=== PATIENT | female | born 1940 | race African-American/Black ===

== ENCOUNTER 2024-08-30 12:57 | Emergency (ER) | payer MEDICAID, SELFPAY ==
[2024-08-30] VITALS (19 sets, daily range): BP systolic 119–194; BP diastolic 53–78; PULSE 56–71; RESP 9–24; TEMP 37.1; O2SAT 96–100; BMI 23.3
--- NOTE | 2024-08-30 | CRLHL7_ITS ---
For Patients: As a result of the Cures Act, medical imaging exams and procedure reports are released immediately into your electronic medical record. You may view this report before your referring provider. If you have questions, please contact your health care provider. INDICATION: Postreduction. FINDINGS: Two views of the left wrist show mildly displaced fractures of the distal radius and ulna. No other evidence of acute fracture or dislocation. No other bony or soft tissue abnormalities identified. Dictated by Vasu Flores MD @ 08/30/2024 6:14:33 PM Dictated by: Vasu Flores MD @ 08/30/2024 18:14:44 (Electronically Signed)
--- NOTE | 2024-08-30 13:19 | CRLHL7_ITS ---
For Patients: As a result of the Century Cures Act, medical imaging exams and procedure reports are released immediately into your electronic medical record. You may view this report before your referring provider. If you have questions, please contact your health care provider. INDICATION: Pain. Fall. COMPARISON: None. TECHNIQUE: Two views left forearm. IMPRESSION: Impacted dorsally angulated fracture distal metaphysis radius and ulna. Recommend designated imaging of the wrist for better characterization. No definitive intra-articular extension in the radius. Proximal radius and ulna look normal. 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 Dictated by Ruperto Verma MD @ 08/30/2024 3:39:47 PM (Electronically Signed)
--- NOTE | 2024-08-30 13:20 | CRLHL7_ITS ---
For Patients: As a result of the Century Cures Act, medical imaging exams and procedure reports are released immediately into your electronic medical record. You may view this report before your referring provider. If you have questions, please contact your health care provider. INDICATION: Fall. Hit head. Neck pain. TECHNIQUE: CT of the cervical spine without contrast. Coronal and sagittal reformats are included. COMPARISON: None. FINDINGS: Fractures and other acute findings: None. Hardware: None. Spinal alignment: Within normal limits. Significant cervical spondylosis: Scattered cervical spondylosis without CT visualized high-grade spinal canal/neural foraminal stenosis. Paraspinal soft tissues and imaged lungs: Within normal limits. IMPRESSION: 1. No acute fracture or traumatic malalignment of the cervical spine. Please note that all CT scans at this facility use dose modulation, iterative reconstruction, and/or weight-based dosing when appropriate to reduce radiation dose to as low as reasonably achievable. Dictated by Jarad Amaya MD @ 08/30/2024 3:26:11 PM (Electronically Signed)
--- NOTE | 2024-08-30 13:20 | CRLHL7_ITS ---
For Patients: As a result of the Century Cures Act, medical imaging exams and procedure reports are released immediately into your electronic medical record. You may view this report before your referring provider. If you have questions, please contact your health care provider. INDICATION: Fall. Hit head. TECHNIQUE: CT of the head without contrast. Coronal and sagittal reformats are included. COMPARISON: None. FINDINGS: No acute intracranial hemorrhage. No mass effect or midline shift. No hydrocephalus or extra-axial collections. Patchy white matter hypoattenuation, typical for chronic microvascular ischemic change. 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 Overall moderate generalized parenchymal volume loss. No acute osseous abnormalities. Mastoid air cells and paranasal sinuses are clear. Left frontal/supraorbital soft tissue hematoma. IMPRESSION: IMPRESSION: 1. No acute intracranial abnormalities. Please note that all CT scans at this facility use dose modulation, iterative reconstruction, and/or weight-based dosing when appropriate to reduce radiation dose to as low as reasonably achievable. Dictated by Jarad Amaya MD @ 08/30/2024 3:23:11 PM (Electronically Signed)
--- NOTE | 2024-08-30 13:20 | CRLHL7_ITS ---
For Patients: As a result of the 21st Century Cures Act, medical imaging exams and procedure reports are released immediately into your electronic medical record. You may view this report before your referring provider. If you have questions, please contact your health care provider. INDICATION: FALL, CHEST PAIN, TRAUMA. (Sic) COMPARISON: None available. TECHNIQUE: CT of the chest with 75 cc of Isovue 370 intravenous contrast. Please note that all CT scans at this facility use dose modulation, iterative reconstruction, and/or weight-based dosing when appropriate to reduce radiation dose to as low as reasonably achievable. FINDINGS: THORAX Visualized Lower Neck: No significant incidental findings. Thoracic Aorta: No periaortic hemorrhage, intraluminal thrombus or intimomedial flap, intramural hematoma, contour abnormality/caliber change or active extravasation. Pulmonary Arterial Vasculature: Opacification of the pulmonary arterial tree is adequate for assessment of pulmonary embolism. No intraluminal pulmonary arterial filling defect is identified to indicate a pulmonary embolism. Lungs: No lung injury. No significant incidental findings. Medial segment right middle lobe paramediastinal subsegmental atelectasis. Incidental pleural-based linear opacities in the superior segment of the right lower lobe, lingula and right lower lobe consistent with subsegmental atelectasis and/or nonspecific fibrosis, not considered to be clinically significant. Pleura: No hemothorax. No pneumothorax. No simple effusion. Mediastinum: No mediastinal hemorrhage or pneumomediastinum. Cardiomegaly. Trachea and esophagus are normal in appearance. No mediastinal lymphadenopathy. INCLUDED SKELETON AND BODY WALL Spine: No significant spondylolisthesis, widening of the intervertebral disc spaces, interfacetal joints or interspinous distances. Vertebral bodies, pedicles, laminae, articular, transverse and spinous processes are intact. Ribs: No rib fracture is identified. Visualized appendicular skeleton: No fracture is identified. Body Wall: No soft tissue injury is identified. ABDOMEN Visualized Upper Abdomen: No significant findings. Bilateral upper pole subcentimeter renal calcifications consistent with nonobstructing nephroliths. NB: Detection of acute traumatic injury on imaging is improved with a specific clinical history as to the anatomical region or regions of concern. If there is ongoing clinical concern for an undiagnosed injury after secondary clinical survey then this examination can be reviewed if additional clinical history is forthcoming. IMPRESSION: No acute traumatic injury is identified. Incidental findings as above. Please note that all CT scans at this facility use dose modulation, iterative reconstruction, and/or weight-based dosing when appropriate to reduce radiation dose to as low as reasonably achievable. Dictated by Arsen Lawrence MD @ 08/30/2024 3:30:24 PM (Electronically Signed)
--- NOTE | 2024-08-30 13:33 | ED_ITS ---
HPI - General Adult General Date Seen: 08/30/24 <Kerry Croft MD - Last Filed: 08/30/24 19:46> Chief complaint: Fall/Minor Trauma <Kerry Croft MD - Last Filed: 08/30/24 19:46> Stated complaint: Fall down stairs <Kerry Croft MD - Last Filed: 08/30/24 19:46> Time Seen by Provider: 08/30/24 12:59 <Kerry Croft MD - Last Filed: 08/30/24 19:46> History of Present Illness HPI narrative: Patient is an 83-year-old woman visiting family here from [place], she is non Mongolian-speaking and her daughter is interpreting. We do not have any prior records. Family brings her in after she fell down several steps. Her granddaughter says that they have what sounds like a split-level home, her vision is very poor and the granddaughter thinks she had intended to go up the stairs and in stead approached the stairs going down and then fell down these carpeted steps. She hit her head and has a laceration above her left eyebrow. There is no reported loss of consciousness and she denies neck pain. She also has deformity and pain in her left arm. When specifically asked she notes rib pain. Does not complain of back pain. Mentioned urinary frequency recently as an aside to the nurse. No fevers or other illness. She is not anticoagulated. <Kerry Croft MD - Last Filed: 08/30/24 19:46> Related Data Home medications: Home Medications ?Medication ?Instructions ?Recorded ?Confirmed Unknown BP med 08/30/24 Unknown Statin 08/30/24 <Kerry Croft MD - Last Filed: 08/30/24 19:46> Allergies/adverse reactions: Allergies Allergy/AdvReac Type Severity Reaction Status Date / Time No Known Drug Allergies Allergy Verified 08/30/24 13:03 <Kerry Croft MD - Last Filed: 08/30/24 19:46> Review of Systems Status of ROS: Reports: other <Kerry Croft MD - Last Filed: 08/30/24 19:46> Exam Narrative: Exam Narrative: Vital signs reviewed In general, alert, nontoxic elderly woman. Arrives in wheelchair, transfers to bed without assistance. GCS 15. Head: Normocephalic. She has a small, roughly 1 cm wound above the left eye which is deep, with some venous oozing. Eyes: Sclera clear. Cataracts bilaterally. ENT: Mucous membranes moist. She has a bruise above the left cheek bone, no bony deformity or tenderness. Neck: Supple without adenopathy. Nontender to palpation. Heart: Regular rate and rhythm without murmur. Lungs: Clear. No increased work of breathing, crackles or wheezes. No focal tenderness, no visible bruising or deformity. Back: No visible trauma. Nontender to palpation. Abdomen: Soft, nontender to palpation. Atraumatic. Extremities: Well perfused, pulses intact. Deformity and swelling noted in the left forearm. Distal CMS intact. Remainder of the extremities are nontender to palpation without deformity or swelling. Neurologic: Alert, conversant. Speech fluent, face symmetric. Moves all extremities equally. Skin: Warm, dry well perfused. Affect: Normal. <Kerry rCoft MD - Last Filed: 08/30/24 19:46> Const: Vital Signs, click to edit/add: Vital Signs - 24 hr 08/30/24 13:05 08/30/24 14:00 08/30/24 14:15 Temperature 98.7 F Pulse Rate 63 61 Pulse Rate [Pulse Oximeter] 56 L Respiratory Rate 14 Blood Pressure Blood Pressure [Ri ght Upper Arm] 194/75 H Pulse Oximetry 96 96 96 Oxygen Delivery Me thod Room Air 08/30/24 16:39 08/30/24 16:40 08/30/24 16:56 Temperature Pulse Rate 70 71 Pulse Rate [Pulse Oximeter] 63 Respiratory Rate 18 Blood Pressure 180/64 H Blood Pressure [Ri ght Upper Arm] 173/57 H Pulse Oximetry 96 97 98 Oxygen Delivery Me thod Room Air 08/30/24 16:56 08/30/24 16:57 08/30/24 17:00 Temperature Pulse Rate 68 67 67 Pulse Rate [Pulse Oximeter] Respiratory Rate 20 23 18 Blood Pressure 170/59 H 173/57 H Blood Pressure [Ri ght Upper Arm] Pulse Oximetry 99 99 99 Oxygen Delivery Me thod 08/30/24 17:02 08/30/24 17:07 08/30/24 17:13 Temperature Pulse Rate 67 67 66 Pulse Rate [Pulse Oximeter] Respiratory Rate 20 24 14 Blood Pressure 160/62 H 163/62 H 161/59 H Blood Pressure [Ri ght Upper Arm] Pulse Oximetry 99 99 100 Oxygen Delivery Me thod 08/30/24 17:15 08/30/24 17:17 08/30/24 17:23 Temperature Pulse Rate 66 65 67 Pulse Rate [Pulse Oximeter] Respiratory Rate 21 19 9 L Blood Pressure 163/66 H 132/66 Blood Pressure [Ri ght Upper Arm] Pulse Oximetry 100 100 100 Oxygen Delivery Me thod 08/30/24 17:28 08/30/24 17:30 08/30/24 17:33 Temperature Pulse Rate 67 66 65 Pulse Rate [Pulse Oximeter] Respiratory Rate 15 18 16 Blood Pressure 140/56 H 119/53 L Blood Pressure [Ri ght Upper Arm] Pulse Oximetry 99 100 98 Oxygen Delivery Me thod 08/30/24 18:34 Temperature Pulse Rate Pulse Rate [Pulse Oximeter] 66 Respiratory Rate 18 Blood Pressure Blood Pressure [Ri ght Upper Arm] 132/78 Pulse Oximetry 99 Oxygen Delivery Me thod Room Air <Kerry Croft MD - Last Filed: 08/30/24 19:46> Vital Signs, click to edit/add: Vital Signs - 24 hr 08/30/24 13:05 08/30/24 14:00 08/30/24 14:15 Temperature 98.7 F Pulse Rate 63 61 Pulse Rate [Pulse Oximeter] 56 L Respiratory Rate 14 Blood Pressure Blood Pressure [Ri ght Upper Arm] 194/75 H Pulse Oximetry 96 96 96 Oxygen Delivery Me thod Room Air 08/30/24 16:39 08/30/24 16:40 08/30/24 16:56 Temperature Pulse Rate 70 71 Pulse Rate [Pulse Oximeter] 63 Respiratory Rate 18 Blood Pressure 180/64 H Blood Pressure [Ri ght Upper Arm] 173/57 H Pulse Oximetry 96 97 98 Oxygen Delivery Me thod Room Air 08/30/24 16:56 08/30/24 16:57 08/30/24 17:00 Temperature Pulse Rate 68 67 67 Pulse Rate [Pulse Oximeter] Respiratory Rate 20 23 18 Blood Pressure 170/59 H 173/57 H Blood Pressure [Ri ght Upper Arm] Pulse Oximetry 99 99 99 Oxygen Delivery Me thod 08/30/24 17:02 08/30/24 17:07 08/30/24 17:13 Temperature Pulse Rate 67 67 66 Pulse Rate [Pulse Oximeter] Respiratory Rate 20 24 14 Blood Pressure 160/62 H 163/62 H 161/59 H Blood Pressure [Ri ght Upper Arm] Pulse Oximetry 99 99 100 Oxygen Delivery Me thod 08/30/24 17:15 08/30/24 17:17 08/30/24 17:23 Temperature Pulse Rate 66 65 67 Pulse Rate [Pulse Oximeter] Respiratory Rate 21 19 9 L Blood Pressure 163/66 H 132/66 Blood Pressure [Ri ght Upper Arm] Pulse Oximetry 100 100 100 Oxygen Delivery Me thod 08/30/24 17:28 08/30/24 17:30 08/30/24 17:33 Temperature Pulse Rate 67 66 65 Pulse Rate [Pulse Oximeter] Respiratory Rate 15 18 16 Blood Pressure 140/56 H 119/53 L Blood Pressure [Ri ght Upper Arm] Pulse Oximetry 99 100 98 Oxygen Delivery Me thod 08/30/24 18:34 Temperature Pulse Rate Pulse Rate [Pulse Oximeter] 66 Respiratory Rate 18 Blood Pressure Blood Pressure [Ri ght Upper Arm] 132/78 Pulse Oximetry 99 Oxygen Delivery Me thod Room Air <Richy Mansfield MD - Last Filed: 08/30/24 17:33> Course Course ED Course: 83-year-old woman presents after fall downstairs with multiple visible injuries including facial laceration and left arm fracture, will get a CT of the head and cervical spine as well as her chest given the rib pain. No evident respiratory complaints or findings on exam. Will give a little bit of morphine for pain control. Procedure note: The wound on her forehead was anesthetized using lidocaine with epinephrine. Irrigated by bottle house quality control technician. Explored without evidence of foreign body or injury to deeper structures. Closed using 5 0 Vicryl, 2 deep simple interrupted sutures to close the deeper space and then 4 simple interrupted sutures using 5 0 nylon. She tolerated this well, no immediate complication. Bleeding controlled. Labs show a normal white blood cell count, hemoglobin of 11, baseline unknown. Electrolytes normal, creatinine 1, blood sugar 149. I reviewed her CT scans and her x-rays. On the left forearm x-rays, there is a distal radius and distal ulna fracture which is angulated and comminuted. I do not see any evidence on the head CT of intracranial hemorrhage or fracture. Likewise in the chest, I did not see rib fracture, pneumothorax or lung contusion. I reviewed the radiology reports. The head and cervical spine are read as negative for any acute traumatic findings. Chest is read as negative for any acute traumatic findings. Wrist is read as fracture of the distal radius and ulna. The knee is read as negative for any visible fracture, but she does have a large effusion. Apparently when she was at CT she had pain with weight-bearing there, so I do think a CT is warranted to look for occult fracture. Discussed with her daughter and with the patient by her daughter translating how to manage the fracture of her left wrist. Initially, we tried a hematoma block, but she did not have adequate anesthesia with that to manipulate the fracture and reduce it. Therefore, we discussed risks and benefits of sedation including over-sedation, need for airway management, aspiration. She and her daughter did agree to proceed with that. Consent obtained. Procedure note: She is maintained on oximetry, end-tidal CO2, cardiac monitoring. She was given propofol, Dr. Mansfield perform sedation please see his note for details. She tolerated well. The left distal radius and ulnar were reduced, intra reduction x-ray shows reduction of the angulation on lateral view and adequate positioning on the AP view. She was splinted in a sugar-tong splint with Orthoglass and Dieudonne wraps. CMS remains intact. Repeat films post splinting are pending. Review of the films post splinting show that there is a little bit of increased angulation, but I think it is adequate reduction until she sees Orthopedics. She did have a CT scan of the left knee, I reviewed this, I did not see any evidence of fracture. Radiology notes that there is a hyperattenuating joint effusion consistent with hemarthrosis but no evidence of lipohemarthrosis to indirectly suggest an intra-articular fracture. This may or may not be new, in any case given that she does endorse some pain in the knee recommended use of cane or walker to help offload the knee that in the short term. At this time, she is stable for discharge home. Orthopedic follow-up is arranged for her to follow-up with for the wrist and the knee. Tylenol as needed for pain. Suture removal in 5-7 days in clinic. Return for signs of infection or more severe head injury, or any other new or worsening concerns. <Kerry Croft MD - Last Filed: 08/30/24 19:46> Vital Signs Vital signs: Initial Vital Signs Temperature 98.7 F 08/30/24 13:05 Temperature Source Temporal Artery Scan 08/30/24 13:05 Pulse Rate 56 L 08/30/24 13:05 Pulse Rhythm Regular 08/30/24 13:05 Respiratory Rate 14 08/30/24 13:05 Blood Pressure 194/75 H 08/30/24 13:05 Blood Pressure Mean 114 H 08/30/24 13:05 Blood Pressure Position Sitting 08/30/24 13:05 Pulse Oximetry 96 08/30/24 13:05 Oxygen Delivery Method Room Air 08/30/24 13:05 Vital Signs Temperature 98.7 F 08/30/24 13:05 Pulse Rate 56 L 08/30/24 13:05 Respiratory Rate 14 08/30/24 13:05 Blood Pressure 194/75 H 08/30/24 13:05 Pulse Oximetry 96 08/30/24 13:05 Oxygen Delivery Method Room Air 08/30/24 13:05 Temperature 98.7 F 08/30/24 13:05 Pulse Rate 66 08/30/24 18:34 Respiratory Rate 18 08/30/24 18:34 Blood Pressure 132/78 08/30/24 18:34 Pulse Oximetry 99 08/30/24 18:34 Oxygen Delivery Method Room Air 08/30/24 18:34 <Kerry Croft MD - Last Filed: 08/30/24 19:46> Initial Vital Signs Temperature 98.7 F 08/30/24 13:05 Temperature Source Temporal Artery Scan 08/30/24 13:05 Pulse Rate 56 L 08/30/24 13:05 Pulse Rhythm Regular 08/30/24 13:05 Respiratory Rate 14 08/30/24 13:05 Blood Pressure 194/75 H 08/30/24 13:05 Blood Pressure Mean 114 H 08/30/24 13:05 Blood Pressure Position Sitting 08/30/24 13:05 Pulse Oximetry 96 08/30/24 13:05 Oxygen Delivery Method Room Air 08/30/24 13:05 Vital Signs Temperature 98.7 F 08/30/24 13:05 Pulse Rate 56 L 08/30/24 13:05 Respiratory Rate 14 08/30/24 13:05 Blood Pressure 194/75 H 08/30/24 13:05 Pulse Oximetry 96 08/30/24 13:05 Oxygen Delivery Method Room Air 08/30/24 13:05 Temperature 98.7 F 08/30/24 13:05 Pulse Rate 66 08/30/24 18:34 Respiratory Rate 18 08/30/24 18:34 Blood Pressure 132/78 08/30/24 18:34 Pulse Oximetry 99 08/30/24 18:34 Oxygen Delivery Method Room Air 08/30/24 18:34 <Richy Mansfield MD - Last Filed: 08/30/24 17:33> Medications Administered Medications: Discontinued Medications Generic Name Dose Route Start Last Admin Trade Name Freq PRN Reason Stop Dose Admin Sodium Chloride 500 mls @ 500 mls/hr 08/30/24 13:19 08/30/24 14:54 0.9 % Sodium Chloride 500 Ml IV 08/30/24 14:18 Infused .Q1H ONE Infusion Morphine Sulfate 4 mg 08/30/24 13:19 08/30/24 13:43 Morphine 4 Mg/Ml Inj IVP 08/30/24 13:20 4 mg ONCE ONE Administration Propofol 200 mg 08/30/24 16:42 08/30/24 17:32 Propofol 10 Mg/Ml Inj IVP 08/30/24 16:43 90 mg ONCE ONE Administration <Kerry Croft MD - Last Filed: 08/30/24 19:46> Discontinued Medications Generic Name Dose Route Start Last Admin Trade Name Freq PRN Reason Stop Dose Admin Sodium Chloride 500 mls @ 500 mls/hr 08/30/24 13:19 08/30/24 14:54 0.9 % Sodium Chloride 500 Ml IV 08/30/24 14:18 Infused .Q1H ONE Infusion Morphine Sulfate 4 mg 08/30/24 13:19 08/30/24 13:43 Morphine 4 Mg/Ml Inj IVP 08/30/24 13:20 4 mg ONCE ONE Administration Propofol 200 mg 08/30/24 16:42 08/30/24 17:32 Propofol 10 Mg/Ml Inj IVP 08/30/24 16:43 90 mg ONCE ONE Administration <Richy Mansfield MD - Last Filed: 08/30/24 17:33> Medical Decision Making Lab Data Lab results reviewed: Yes I reviewed the patient's lab results <Kerry Croft MD - Last Filed: 08/30/24 19:46> Labs: Lab Results 08/30/24 Range/Units 13:21 WBC 5.38 (4.50-11.00) K/uL RBC 3.49 L (4.00-5.20) m/uL Hgb 11.0 L (12.0-16.0) gm/dL Hct 33.4 (33.0-51.0) % MCV 96 (80-100) fL MCH 32 (26-34) pg MCHC 33 (32-36) gm/dL RDW Coeff of Elvira 11.0 L (11.5-15.5) % Plt Count 152 (140-440) K/uL Neut % (Auto) 49.7 (42.0-72.0) % Lymph % (Auto) 36.6 (20-44) % [place] % (Auto) 5.4 (0.0-11.0) % Eos % (Auto) 7.4 H (0.0-7.0) % Baso % (Auto) 0.9 (0.0-3.0) % Neut # (Auto) 2.67 (1.7-7.0) K/uL Lymph # (Auto) 1.97 (0.90-2.90) K/uL [place] # (Auto) 0.30 (0.00-0.90) K/UL Eos # (Auto) 0.40 (0.00-0.50) K/uL Baso # (Auto) 0.05 (0.00-0.30) K/uL Abs Immat Gran (auto) 0.00 (0.00-0.30) K/uL Imm/Tot Granulo (auto) 0.0 % Sodium 140 (135-149) mmol/L Potassium 4.0 (3.6-5.1) mmol/L Chloride 104 (96-114) mmol/L Carbon Dioxide 28 (20-32) mmol/L Anion Gap 8 (7-15) mEq/L BUN 20 (7-30) mg/dL Creatinine 1.0 (0.5-1.5) mg/dL Estimated Creat Clear 37.68 Estimated GFR 56 ml/min Glucose 149 H (60-115) mg/dL Calcium 9.3 (8.4-10.6) mg/dL Urine Color Yellow (Yellow) Urine Appearance Cloudy A (Clear) Urine pH 7.0 (5.0-8.5) Ur Specific [place] 1.015 (1.000-1.030) Urine Protein Negative (Negative) Urine Glucose (UA) Negative (Negative) Urine Ketones Negative (Negative) Urine Blood Trace-intact A (Negative) Urine Nitrite Negative (Negative) Urine Bilirubin Negative (Negative) Urine Urobilinogen 1.0 (0.2-1.0) Ur Leukocyte Esterase 3+ A (Negative) Urine RBC 0-2 (0-2) Urine WBC 10-25 A (0-5) Urine WBC Clumps Few A (None) Ur Squamous Epith Cells Few (None-Few) Urine Bacteria Many A (None) <Kerry Croft MD - Last Filed: 08/30/24 19:46> Lab Results 08/30/24 Range/Units 13:21 WBC 5.38 (4.50-11.00) K/uL RBC 3.49 L (4.00-5.20) m/uL Hgb 11.0 L (12.0-16.0) gm/dL Hct 33.4 (33.0-51.0) % MCV 96 (80-100) fL MCH 32 (26-34) pg MCHC 33 (32-36) gm/dL RDW Coeff of Elvira 11.0 L (11.5-15.5) % Plt Count 152 (140-440) K/uL Neut % (Auto) 49.7 (42.0-72.0) % Lymph % (Auto) 36.6 (20-44) % [place] % (Auto) 5.4 (0.0-11.0) % Eos % (Auto) 7.4 H (0.0-7.0) % Baso % (Auto) 0.9 (0.0-3.0) % Neut # (Auto) 2.67 (1.7-7.0) K/uL Lymph # (Auto) 1.97 (0.90-2.90) K/uL [place] # (Auto) 0.30 (0.00-0.90) K/UL Eos # (Auto) 0.40 (0.00-0.50) K/uL Baso # (Auto) 0.05 (0.00-0.30) K/uL Abs Immat Gran (auto) 0.00 (0.00-0.30) K/uL Imm/Tot Granulo (auto) 0.0 % Sodium 140 (135-149) mmol/L Potassium 4.0 (3.6-5.1) mmol/L Chloride 104 (96-114) mmol/L Carbon Dioxide 28 (20-32) mmol/L Anion Gap 8 (7-15) mEq/L BUN 20 (7-30) mg/dL Creatinine 1.0 (0.5-1.5) mg/dL Estimated Creat Clear 37.68 Estimated GFR 56 ml/min Glucose 149 H (60-115) mg/dL Calcium 9.3 (8.4-10.6) mg/dL Urine Color Yellow (Yellow) Urine Appearance Cloudy A (Clear) Urine pH 7.0 (5.0-8.5) Ur Specific [place] 1.015 (1.000-1.030) Urine Protein Negative (Negative) Urine Glucose (UA) Negative (Negative) Urine Ketones Negative (Negative) Urine Blood Trace-intact A (Negative) Urine Nitrite Negative (Negative) Urine Bilirubin Negative (Negative) Urine Urobilinogen 1.0 (0.2-1.0) Ur Leukocyte Esterase 3+ A (Negative) Urine RBC 0-2 (0-2) Urine WBC 10-25 A (0-5) Urine WBC Clumps Few A (None) Ur Squamous Epith Cells Few (None-Few) Urine Bacteria Many A (None) <Richy Mansfield MD - Last Filed: 08/30/24 17:33> Imaging Data CT left knee: Attestation: I have reviewed the pertinent imaging results. <Kerry Croft MD - Last Filed: 08/30/24 19:46> Radiologist's impression: Patient: DELLA BUSTAMANTE Facility: [facility] Site . Site : 1940 Study: CT-Knee Left W/O-08/30/2024 6:15:52 PM Ordering Physician: Guerda Payne Preliminary Report: INDICATION: LT KNEE PAIN, EFFUSION. (Sic) COMPARISON: Same day radiographic examination. PRELIMINARY FINDINGS: 1. [id number] hyperattenuating joint effusion with a dependent hematocrit level consistent with a hemarthrosis. No evidence of lipohemarthrosis to indirectly implicate an intra-articular fracture. Differential diagnostic considerations for hemarthrosis include trauma, an underlying bleeding diathesis and anticoagulation. 2. No fracture is identified. 3. Advanced tricompartmental osteoarthrosis noted incidentally. THIS IS A PRELIMINARY REPORT. FINAL REPORT TO BE ISSUED BY THE [facility] OF THE DEPARTMENT. <Kerry Croft MD - Last Filed: 08/30/24 19:46> CT scan - head: Attestation: I have reviewed the pertinent imaging results. <Kerry Croft MD - Last Filed: 08/30/24 19:46> Radiologist's impression: Patient: Della Bustamante MR#: [id number] : 1940 Acct:[id number] Loc: ED Service Date: 08/30/[address]: Ordering Physician: Kerry Croft M.D. Date of Service: 08/30/24 Procedure(s): CT head/brain wo con Accession Number(s): [id number] cc: Kerry Croft M.D.; Provider,Not a Local~ For Patients: As a result of the Century Cures Act, medical imaging exams and procedure reports are released immediately into your electronic medical record. You may view this report before your referring provider. If you have questions, please contact your health care provider. INDICATION: Fall. Hit head. TECHNIQUE: CT of the head without contrast. Coronal and sagittal reformats are included. COMPARISON: None. FINDINGS: No acute intracranial hemorrhage. No mass effect or midline shift. No hydrocephalus or extra-axial collections. Patchy white matter hypoattenuation, typical for chronic microvascular ischemic change. 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 Overall moderate generalized parenchymal volume loss. No acute osseous abnormalities. Mastoid air cells and paranasal sinuses are clear. Left frontal/supraorbital soft tissue hematoma. IMPRESSION: IMPRESSION: 1. No acute intracranial abnormalities. Please note that all CT scans at this facility use dose modulation, iterative reconstruction, and/or weight-based dosing when appropriate to reduce radiation dose to as low as reasonably achievable. Dictated by Jarad Amaya MD @ 08/30/2024 3:23:11 PM <Kerry Croft MD - Last Filed: 08/30/24 19:46> CT- Other: Attestation: I have reviewed the pertinent imaging results. <Kerry Croft MD - Last Filed: 08/30/24 19:46> Radiologist's impression: Patient: Della Bustamante MR#: [id number] : 1940 Acct:[id number] Loc: ED Service Date: 08/30/[address]: Ordering Physician: Kerry Croft M.D. Date of Service: 08/30/24 Procedure(s): CT cervical spine wo con Accession Number(s): [id number] cc: Kerry Croft M.D.; Provider,Not a Local~ For Patients: As a result of the Cures Act, medical imaging exams and procedure reports are released immediately into your electronic medical record. You may view this report before your referring provider. If you have questions, please contact your health care provider. INDICATION: Fall. Hit head. Neck pain. TECHNIQUE: CT of the cervical spine without contrast. Coronal and sagittal reformats are included. COMPARISON: None. FINDINGS: Fractures and other acute findings: None. Hardware: None. Spinal alignment: Within normal limits. Significant cervical spondylosis: Scattered cervical spondylosis without CT visualized high-grade spinal canal/neural foraminal stenosis. Paraspinal soft tissues and imaged lungs: Within normal limits. IMPRESSION: 1. No acute fracture or traumatic malalignment of the cervical spine. Please note that all CT scans at this facility use dose modulation, iterative reconstruction, and/or weight-based dosing when appropriate to reduce radiation dose to as low as reasonably achievable. Dictated by Jarad Amaya MD @ 08/30/2024 3:26:11 PM <Kerry Croft MD - Last Filed: 08/30/24 19:46> CT scan - chest: Attestation: I have reviewed the pertinent imaging results. <Kerry Croft MD - Last Filed: 08/30/24 19:46> Radiologist's impression: Patient: Della Bustamante MR#: [id number] : 1940 Acct:[id number] Loc: ED Service Date: 08/30/[address]: Ordering Physician: Kerry Croft M.D. Date of Service: 08/30/24 Procedure(s): CT chest w con Accession Number(s): [id number] cc: Kerry Croft M.D.; Provider,Not a Local~ For Patients: As a result of the Cures Act, medical imaging exams and procedure reports are released immediately into your electronic medical record. You may view this report before your referring provider. If you have questions, please contact your health care provider. INDICATION: FALL, CHEST PAIN, TRAUMA. (Sic) COMPARISON: None available. TECHNIQUE: CT of the chest with 75 cc of Isovue 370 intravenous contrast. Please note that all CT scans at this facility use dose modulation, iterative reconstruction, and/or weight-based dosing when appropriate to reduce radiation dose to as low as reasonably achievable. FINDINGS: THORAX Visualized Lower Neck: No significant incidental findings. Thoracic Aorta: No periaortic hemorrhage, intraluminal thrombus or intimomedial flap, intramural hematoma, contour abnormality/caliber change or active extravasation. Pulmonary Arterial Vasculature: Opacification of the pulmonary arterial tree is adequate for assessment of pulmonary embolism. No intraluminal pulmonary arterial filling defect is identified to indicate a pulmonary embolism. Lungs: No lung injury. No significant incidental findings. Medial segment right middle lobe paramediastinal subsegmental atelectasis. Incidental pleural-based linear opacities in the superior segment of the right lower lobe, lingula and right lower lobe consistent with subsegmental atelectasis and/or nonspecific fibrosis, not considered to be clinically significant. Pleura: No hemothorax. No pneumothorax. No simple effusion. Mediastinum: No mediastinal hemorrhage or pneumomediastinum. Cardiomegaly. Trachea and esophagus are normal in appearance. No mediastinal lymphadenopathy. INCLUDED SKELETON AND BODY WALL Spine: No significant spondylolisthesis, widening of the intervertebral disc spaces, interfacetal joints or interspinous distances. Vertebral bodies, pedicles, laminae, articular, transverse and spinous processes are intact. Ribs: No rib fracture is identified. Visualized appendicular skeleton: No fracture is identified. Body Wall: No soft tissue injury is identified. ABDOMEN Visualized Upper Abdomen: No significant findings. Bilateral upper pole subcentimeter renal calcifications consistent with nonobstructing nephroliths. NB: Detection of acute traumatic injury on imaging is improved with a specific clinical history as to the anatomical region or regions of concern. If there is ongoing clinical concern for an undiagnosed injury after secondary clinical survey then this examination can be reviewed if additional clinical history is forthcoming. IMPRESSION: No acute traumatic injury is identified. Incidental findings as above. Please note that all CT scans at this facility use dose modulation, iterative reconstruction, and/or weight-based dosing when appropriate to reduce radiation dose to as low as reasonably achievable. Dictated by Arsen Lawrence MD @ 08/30/2024 3:30:24 PM <Kerry Croft MD - Last Filed: 08/30/24 19:46> Discharge Plan Discharge Clinical Impression: Fracture of left wrist, Forehead laceration, Hemarthrosis of knee, left, Fracture of wrist <Kerry Croft MD - Last Filed: 08/30/24 19:46> Patient Disposition: Home w/ Parent or Adult <Kerry Croft MD - Last Filed: 08/30/24 19:46> Condition: Stable <Kerry Croft MD - Last Filed: 08/30/24 19:46> Instructions: Laceration (ED), Wrist Fracture in Adults (ED), Hemarthrosis (ED) <Kerry Croft MD - Last Filed: 08/30/24 19:46> Additional Instructions: 1) wrist fracture Follow-up with orthopedics for further discussion regarding management of broken wrist. Splint until that time. Sling as needed for comfort. Tylenol can be used for pain. 2) forehead laceration Suture removal in 5-7 days at your regular clinic. Urgent care is another option if you are not able make a clinic appointment in a timely manner. Keep an ointment such as Aquaphor or Vaseline on the wound to help with wound healing and to keep stitches from getting matted into scab. Ice will help with swelling over the next few days. 3) knee injury CT scan does not show any evidence of broken bones. There is evidence of some bleeding into the knee joint, which may be related to trauma to the knee during her fall. For now, I would use a cane or a walker to help offload some weight off of that knee. This can be further discussed with orthopedics when you follow-up. For new or worsening symptoms, signs of infection, return to the ER at any time. <Kerry Croft MD - Last Filed: 08/30/24 19:46> Prescriptions: No Action Unknown BP med Unknown Statin <Kerry Croft MD - Last Filed: 08/30/24 19:46> Follow Up/Referrals: Provider,Not a Local [Primary Care Provider, Family Practice] <Kerry Croft MD - Last Filed: 08/30/24 19:46> Stand Alone Forms: [employer] Info Instructions <Kerry Croft MD - Last Filed: 08/30/24 19:46> Procedures Procedural Sedation Pre procedure diagnosis: Left wrist fracture <Richy Mansfield MD - Last Filed: 08/30/24 17:33> Verification/time out: correct patient, correct site, correct procedure and time out performed <Richy Mansfield MD - Last Filed: 08/30/24 17:33> Sedation provider same as procedural provider: No <Richy Mansfield MD - Last Filed: 08/30/24 17:33> Assistants, if any: Dr. Mansfield-sedation. Dr. Croft to the reduction <Richy Mansfield MD - Last Filed: 08/30/24 17:33> Indication: fracture/dislocation reduction <Richy Mansfield MD - Last Filed: 08/30/24 17:33> ASA Class: III <Richy Mansfield MD - Last Filed: 08/30/24 17:33> Time of Last PO Intake: 14:00 <Richy Mansfield MD - Last Filed: 08/30/24 17:33> Mallampati classification: IV. soft palate is not visible <Richy Mansfield MD - Last Filed: 08/30/24 17:33> Preparation: night monitor applied, pulse oximeter, capnometry used, supplemental O2 applied, reversal agents at bedside, suction/airway equipment at bedside and IV secured <Richy Mansfield MD - Last Filed: 08/30/24 17:33> IV Propofol dose (mg): 30 (30 mg IV boluses x3 during the procedure. Good anesthesia was achieved with each bolus but she require repeat doses due to time for procedure.) <Richy Mansfield MD - Last Filed: 08/30/24 17:33> Complications: none <Richy Mansfield MD - Last Filed: 08/30/24 17:33>
[2024-08-30] MEDS: MORPHINE 4 MG/ML INJ IVP (13:43)
[2024-08-30] MEDS: 0.9 % SODIUM CHLORIDE 500 ML 500 ML IV (13:46)
[2024-08-30 13:52] LABS: Hematocrit* 33.4 % (33.0-51.0); Hemoglobin* 11.0 gm/dL (12.0-16.0); Immature Granulocytes Abs Auto 0.00 K/uL (0.00-0.30); Immature Granulocytes Pct Auto 0.0 %; Lymphocytes Absolute Auto 1.97 K/uL (0.90-2.90); Mean Corpuscular HGB Conc 33 gm/dL (32-36); Mean Corpuscular Hemoglobin 32 pg (26-34); Mean Corpuscular Volume 96 fL (80-100); RDW Coefficient of Variation % 11.0 % (11.5-15.5); Red Blood Count* 3.49 m/uL (4.00-5.20); White Blood Count* 5.38 K/uL (4.50-11.00)
[2024-08-30 13:59] LABS: Slide Review Reflex No
[2024-08-30 14:04] LABS: Chloride* 104 mmol/L (96-114); Potassium* 4.0 mmol/L (3.6-5.1); Sodium* 140 mmol/L (135-149)
[2024-08-30 14:07] LABS: Anion Gap 8 mEq/L (7-15); Blood Urea Nitrogen* 20 mg/dL (7-30); Calcium* 9.3 mg/dL (8.4-10.6); Carbon Dioxide* 28 mmol/L (20-32); Creatinine* 1.0 mg/dL (0.5-1.5); Est. Creatinine Clearance* 37.68; Estimated Glomerular Filt Rate 56 ml/min; Glucose* 149 mg/dL (60-115)
--- OUTSIDE RECORDS SUMMARY | 2024-08-30 14:10 | XMS_ITS | Encounter Summary ---
Author Organization [place] Address [address] [place] [address]. [place] [address] Care Team Providers Care Upholstery Auto Trimmer Name Role Phone Ruperto Alonzo MD Primary Care Provider [phone] Shanel Be APRN STUNNER ANIMAL Unavailable [phone] Ruperto Alonzo MD Unavailable Loraine Gee APRN STUNNER ANIMAL Primary Care Provider + Loraine Gee APRN STUNNER ANIMAL Unavailable [phone] Michelle Duffy RN Unavailable Unavailable Caitlin Cifuentes PA-C Unavailable Shanel Be APRN STUNNER ANIMAL Unavailable [phone] Caitlin Cifuentes PA-C Unavailable Shanel Be APRN STUNNER ANIMAL Unavailable + Ruperto Alonzo MD Primary Care Provider + Ruperto Alonzo MD Unavailable Reason for Visit * Reason Comments Medication Refill Encounter Details Date Type Department Care Team (Late st Contact Info) Description 12/30/2019 Refill [facility] [address], [address] [place] [address] [place] [address] [place] [address] Medication Refill Social History Tobacco Use Types Packs/Day Years Used Date Smoking Tobacco: Never Smokeless Tobacco: Never Alcohol Use Standard Drinks/Week Comments No 0 (1 standard drink = 0.6 oz pur e alcohol) PHQ-2 Answer Date Recorded PHQ-2 Score 0 01/07/2019 Comments No Sex and Gender Information Value Date Recorded Sex Assigned at Not on file Legal Sex Female 10:30 AM CDT Gender Identity Not on file Sexual Orientation Not on file Occupation Industry Job Start Date Job End Date unemployed Not on file Not on file Not on file documented as of this encounter Miscellaneous Notes * Telephone Encounter - Marychuy Tom RN - 12/31/2019 3:59 PM CST 3 month em refill approved. Routing refill request to provider for review/approval because: Labs not current: LDL Marychuy Tom RN on 12/31/2019 at 3:58 PM R MAKER documented in this encounter Plan of Treatment Upcoming Encounters Date Type Department Care Team (Late st Contact Info) Description 09/19/2024 11:30 AM CDT Office Visit [facility] [address] [place] [address] [place] [address] [place] [phone] documented as of this encounter Visit Diagnoses Diagnosis Hyperlipidemia LDL goal <100 Other and unspecified hyperlipidemia documented in this encounter Additional Health Concerns Assessment Noted Time PHQ-9 Depression Total Score: 10 018 7:21 AM CDT documented as of this encounter Care Teams Upholstery Auto Trimmer Relationship Specialty Start Date End Date Ruperto Alonzo MD PCP - General Family Practice 12/06/18 02/11/20 Loraine Gee APRN STUNNER ANIMAL [address] [address] [phone] PCP - General Nurse Practitioner 02/12/20 03/29/23 [place] [address] [address] [address] PCP - General Family Medicine 07/07/23 Shanel Be APRN STUNNER ANIMAL [address] [place] [address] Assigned PCP 12/01/19 01/11/20 [place] [address] [address] [address] Assigned PCP 01/12/20 02/22/20 Loraine Gee APRN STUNNER ANIMAL [address] [place] [phone] Assigned PCP 02/23/20 12/17/21 Michelle Duffy, RN Personal Advocate & Liaison (PAL) Family Medicine 03/04/20 01/21/21 Caitlin Cifunetes PA-C [facility] [address] [place] [address] Assigned PCP 12/18/21 03/25/22 Shanel Be APRN STUNNER ANIMAL [address] [address] [address] Assigned PCP 03/26/22 09/09/22 Caitlin Cifuentes PA-C [facility] [address] [place] [address] Assigned PCP 09/10/22 03/22/23 Shanel Be APRN [facility] [address] [address] [address] Assigned PCP 03/23/23 07/20/23 [place] [address] [address] [address] Assigned PCP 07/21/23 documented as of this encounter
--- OUTSIDE RECORDS SUMMARY | 2024-08-30 14:10 | XMS_ITS | Encounter Summary ---
Author Organization [place] Address [facility] [place] [address] Care Team Providers Care Talent Acquisition Sourcer Name Role Phone Ruperto Alonzo MD Primary Care Provider [phone] Ruperto Alonzo MD Unavailable Reason for Visit * Reason Comments Medication Refill Encounter Details Date Type Department Care Team (Late st Contact Info) Description 07/29/2024 Refill [facility] [id number] [place] [address] [place] [address] [place] [address] Medication Refill Social History Tobacco Use Types Packs/Day Years Used Date Smoking Tobacco: Never Smokeless Tobacco: Never Alcohol Use Standard Drinks/Week Comments No 0 (1 standard drink = 0.6 oz pur e alcohol) Social Connection and Isolation Panel [NHANES] A nswer Date Recorded Frequency of Communication with Friends and Fami ly Not on file 07/14/2023 How often do you get together with friends or re latives? Once a week 07/14/2023 Attends Faith Services Not on file 07/13 Active Member of Clubs or Organizations Not on f ile 07/14/2023 Attends Club or Organization Meetings Not on ever e 07/14/2023 Marital Status Not on file 07/14/2023 PHQ-2 Answer Date Recorded PHQ-2 Score 2 07/14/2023 [facility] - Occupational Stress Questionnaire Answer Date Recorded Do you feel stress - tense, restless, nervous, or anxious, or unable to sleep at night because your mind is troubled all the time - these days? Only a little 07/14/2023 Exercise Vital Sign Answer Date Recorde d On average, how many days pe r week do you engage in moderate to strenuous exercise (like a brisk walk)? 3 days Minutes of Exercise per Session Not on file 07/14/2023 Adolescent Education Answer Date Record ed Getting School Help Needed Not on file 11/18 Food Insecurity Answer Date Recorded Within the past 12 months, d id you worry that your food would run out before you got money to buy more? No 07/14/2023 Within the past 12 months, d id the food you bought just not last and you didn t have money to get more? No 07/14/2023 Housing Stability Answer Date Recorded Do you have housing? (Housin g is defined as stable permanent housing and does not include staying outside in a car, in a tent, in an abandoned building, in an overnight chcf, or couch-surfing.) Yes 07/14/2023 Are you worried about losing your housing? No 07/14/2023 Financial Resource Strain Answer Date R ecorded Within the past 12 months, h ave you or your family members you live with been unable to get utilities (heat, electricity) when it was really needed? No 07/14/2023 Transportation Needs Answer Date Record ed Within the past 12 months, h as lack of transportation kept you from medical appointments, getting your medicines, non-medical meetings or appointments, work, or from getting things that you need? No 07/14/2023 Comments No Sex and Gender Information Value Date Recorded Sex Assigned at Not on file Legal Sex Female 10:30 AM CDT Gender Identity Not on file Sexual Orientation Not on file Occupation Industry Job Start Date Job End Date unemployed Not on file Not on file Not on file documented as of this encounter Miscellaneous Notes * Telephone Encounter - Bev Moreno RN - 07/29/2024 4:22 PM CDT Spoke to Jb Allen to get patient scheduled - scripts to be sent to [facility] instead. RN confirmed that patient is taking medications as prescribed- daughter states pt was in [place] for 8 months and was seeing provider there. Routing to PCP, Dr. Alonzo- Patient could not get in for appt until 09/19 due to daughter's work schedule/transportation. Would it be ok to send in longer bridge script for this reason? They also prefer a different pharmacy. Pharmacy and scripts pended (included lisinopril from different encounter from 07/29/24 for continuity). Bev Duncan RN [facility] * Telephone Encounter - Keysha Mae - 07/29/2024 8:36 AM CDT LVM to call back for an appointment. Two more attempts will be made. Keysha Mae Lead Alterations Manager [facility] * Telephone Encounter - Ruperto Alonzo MD - 07/29/2024 8:20 AM CDT One month fill provided, pt will need f/u appt for ongoing refill. Please call to schedule CPE. Ruperto Alonzo MD * Addendum Note - Bev Moreno RN - 07/29/2024 12:01 AM CDTAddended by: BEV MORENO on: 07/29/2024 04:28 PM Modules accepted: Orders documented in this encounter Plan of Treatment Upcoming Encounters Date Type Department Care Team (Late st Contact Info) Description 09/19/2024 11:30 AM CDT Office Visit [facility] [address] [place] [address] [place] [address] [place] [address] documented as of this encounter Visit Diagnoses Diagnosis Essential hypertension with goal blood pressure less than 140/90 Hyperlipidemia LDL goal <100 Other and unspecified hyperlipidemia documented in this encounter Additional Health Concerns Assessment Noted Time PHQ-9 Depression Total Score: 1 02/12/20 20 9:42 AM POWER LINE LINEMAN documented as of this encounter Care Teams Talent Acquisition Sourcer Relationship Specialty Start [place] [address] [address] [address] PCP - General Family Medicine 07/07/23 [place] [address] [address] [address] Assigned PCP 07/21/23 documented as of this encounter
--- OUTSIDE RECORDS SUMMARY | 2024-08-30 14:10 | XMS_ITS | Encounter Summary ---
Author Organization [facility] Address [address] [place] [address]. [place] [address] Care Team Providers Care Manager Area Name Role Phone Ruperto Alonzo MD Unavailable + Ruperto Alonzo MD Primary Care Provider + 2 Shanel Be APRN SCOUT Unavailable + Ruperto Alonzo MD Unavailable + Loraine Gee APRN SCOUT Primary Care Provider + Loraine Gee APRN SCOUT Unavailable [phone] Michelle Duffy RN Unavailable Unavailable Caitlin Cifuentes PA-C Unavailable Shanel Be APRN SCOUT Unavailable + [phone] Caitlin Cifuentes PA-C Unavailable Shanel eB APRN SCOUT Unavailable + Ruperto Alonzo MD Primary Care Provider + 2 Ruperto Alonoz MD Unavailable + Reason for Visit * Reason Comments Medication Refill Encounter Details Date Type Department Care Team (Late st Contact Info) Description 11/22/2019 Refill [facility] [address], [address] [place] [address] Shanel Be APRN SCOUT [address] [place] [address] Medication Refill Social History Tobacco Use Types [...] Telephone Encounter - Marychuy Tom RN - 11/25/2019 9:07 AM CDT Prescription approved per [facility] Refill Protocol. Marychuy Tom RN on 11/25/2019 at 9:07 AM documented in this encounter Plan of Treatment Upcoming Encounters Date Type Department Care Team (Late st Contact Info) Description 09/19/2024 11:30 AM CDT Office Visit [facility] [place] [address] [address] [phone] [place] [address] [address] [phone] documented as of this encounter Visit Diagnoses Diagnosis Essential hypertension with goal blood pressure less than 140/90 documented in this encounter Additional Health Concerns Assessment Noted Time PHQ-9 Depression Total Score: 10 018 7:21 AM CDT documented as of this encounter Care Teams Manager Area Relationship Specialty Start [place] [address] [address] [phone] PCP - General Family Practice 12/06/18 02/11/20 Loraine Gee APRN SCOUT [address] [address] [address] PCP - General Nurse Practitioner 02/12/20 03/29/23 [place] [address] [address] [place] [address] PCP - General Family Medicine 07/07/23 [place] [address] [address] [place] [address] Assigned PCP 08/12/18 11/30/19 Shanel Be APRN SCOUT [address] [place] [address] Assigned PCP 12/01/19 01/11/20 [place] [address] [address] [place] [address] Assigned PCP 01/12/20 02/22/20 Loraine Gee APRN SCOUT [address] [place] [address] [phone] Assigned PCP 02/23/20 12/17/21 Michelle Duffy RN Personal Advocate & Liaison (PAL) Family Medicine 03/04/20 01/21/21 Caitlin Cifuentes PA-C [facility] [address] [place] [address] Assigned PCP 12/18/21 03/25/22 Shanel Be APRN SCOUT [address] [address] [address] Assigned PCP 03/26/22 09/09/22 Caitlin Cifuentes PA-C [facility] [address] [place] [address] Assigned PCP 09/10/22 03/22/23 Shanel Be APRN [facility] [address] [address] [address] Assigned PCP 03/23/23 07/20/23 [place] [address] [address] [address] Assigned PCP 07/21/23 documented as of this encounter
--- OUTSIDE RECORDS SUMMARY | 2024-08-30 14:10 | XMS_ITS | Encounter Summary ---
Author Organization [place] Address [facility] [place] [address] Care Team Providers Care Strategic Planner Name Role Phone Loraine Gee APRN MANAGER CITY Primary Care Provider + Loraine Gee APRN, CNP Unavailable [phone] Michelle Duffy RN Unavailable Unavailable Caitlin Cifuentes PA-C Unavailable Shanel Be APRN, CNP Unavailable [phone] Caitlin Cifuentes PA-C Unavailable Shanel Be APRN, CNP Unavailable [phone] Ruperto Alonzo MD Primary Care Provider [phone] Ruperto Alonzo MD Unavailable Reason for Visit * Reason Comments Medication Refill Encounter Details Date Type Department Care Team (Late st Contact Info) Description 12/28/[address] [facility] [id number] [place] [phone] Shubham Schwarz PA-C [address] [place] [address] Medication Refill Social History Tobacco Use Types Packs/Day Years Used Date Smoking Tobacco: Never Smokeless Tobacco: Never Alcohol Use Standard Drinks/Week Comments No 0 (1 standard drink = 0.6 oz pur e alcohol) PHQ-2 Answer Date Recorded PHQ-2 Score 0 03/12/2020 Comments No Sex and Gender Information Value Date Recorded Sex Assigned at Not on file Legal Sex Female 10:30 AM CDT Gender Identity Not on file Sexual Orientation Not on file Occupation Industry Job Start Date Job End Date unemployed Not on file Not on file Not on file documented as of this encounter Miscellaneous Notes * Telephone Encounter - Rosy Reddy RN - 12/28/2020 1:33 PM CDT Denied below. Upcoming appt with Dr. Alonzo 02/05/21. Rosy Reddy RN December 23, 2020 Ayala Crowley ?? 4:07 PM Note LM for pt to return call Ayala Crowley/Life Educator ?? AG ?? 10:58 AM Loraine Gee APRN CNP routed this conversation to Rust2/3/4 [facility] Team (Ma/Tc) Loraine Gee APRN CNP AG ?? 10:58 AM Note Needs visit. 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) documented in this encounter Additional Health Concerns Assessment Noted Time PHQ-9 Depression Total Score: 1 02/12/20 20 9:42 AM TRACER 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 [address] [place] [address] Assigned PCP 12/18/21 03/25/22 Shanel Be APRN MANAGER [place] [address] [place] [address] Assigned PCP 03/26/22 09/09/22 Caitlin Cifuentes PA-C [facility] [address] [place] [address] Assigned PCP 09/10/22 03/22/23 Shanel Be APRN MANAGER [place] [address] [place] [address] Assigned PCP 03/23/23 07/20/23 [place] [address] [place] [address] Assigned PCP 07/21/23 documented as of this encounter
--- OUTSIDE RECORDS SUMMARY | 2024-08-30 14:10 | XMS_ITS | Encounter Summary ---
Author Organization [place] Address [address] [place] [address]. [place] [address] Care Team Providers Care Custom Applicator Name Role Phone Ruperto Alonzo MD Unavailable + Ruperto Alonzo MD Primary Care Provider + 2 Shanel Be APRN METAL PRODUCTS VIEWER Unavailable + Ruperto Alonzo MD Unavailable + Loraine Gee APRN METAL PRODUCTS VIEWER Primary Care Provider + Loraine Gee APRN METAL PRODUCTS VIEWER Unavailable [phone] Michelle Duffy RN Unavailable Unavailable Caitlin Cifuentes PA-C Unavailable Shanel Be APRN METAL PRODUCTS VIEWER Unavailable + [phone] Caitlin Cifuentes PA-C Unavailable Shanel Be APRN METAL PRODUCTS VIEWER Unavailable + Ruperto Alonzo MD Primary Care Provider + 2 Ruperto Alonzo MD Unavailable + Reason for Visit * Reason Comments Medication Refill Encounter Details Date Type Department Care Team (Late st Contact Info) Description 04/27/2019 Refill [facility] [address], [address] [place] [address] [place] [address] [address] [place], [place] [phone] Medication Refill Social History Tobacco Use Types [...] encounter Miscellaneous Notes * Telephone Encounter - Nica Redd RN - 04/30/2019 7:56 AM CST Images from the original note were not included. Routing refill request to provider for review/approval because: Drug not on the [facility] refill protocol - Timolol Maleate eye drops Labs not current: Biguanide Agents Failed 11:01 AM X Patient has documented LDL within the past 12 mos. X Patient has documented A1c within the specified period of time. LDL Cholesterol Calculated Date Value Ref Range Status 08/23/2017 62 <100 mg/dL Final Comment: Desirable: <100 mg/dl Lab Results Component Value Date A1C 4.7 08/07/2018 A1C 5.1 11/29/2017 A1C 5.0 08/23/2017 A1C 5.1 09/01/2016 A1C 4.9 10/08/2015 Nica Redd RN MING [employer]OL MAINTENANCE documented in this encounter Plan of Treatment Upcoming Encounters Date Type Department Care Team (Late st Contact Info) Description 09/19/2024 11:30 AM CDT Office Visit [facility] [address] [facility] [place] [address] [place] [address] [facility] [address] documented as of this encounter Visit Diagnoses Diagnosis Primary open angle glaucoma of both eyes, unspecified glaucoma stage Type 2 diabetes mellitus with diabetic polyneuropathy, 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) documented in this encounter Additional Health Concerns Assessment Noted Time PHQ-9 Depression Total Score: 10 018 7:21 AM CDT documented as of this encounter Care Teams Custom Applicator Relationship Specialty Start [place] [address] [address] [address] PCP - General Family Practice 12/06/18 02/11/20 Loraine Gee APRN METAL PRODUCTS VIEWER [address] [place] [address] PCP - General Nurse Practitioner 02/12/20 03/29/23 [place] [address] [address] [address] PCP - General Family Medicine 07/07/23 [place] [address] [address] [address] Assigned PCP 08/12/18 11/30/19 Shanel Be APRN METAL PRODUCTS VIEWER [address] [address] [address] Assigned PCP 12/01/19 01/11/20 [place] [address] [address] [address] Assigned PCP 01/12/20 02/22/20 Loraine Gee APRN METAL PRODUCTS VIEWER [address] [place] [phone] Assigned PCP 02/23/20 12/17/21 Michelle Duffy, RN Personal Advocate & Liaison (PAL) Family Medicine 03/04/20 01/21/21 Caitlin Cifuentes PA-C [place] [id number] [place] [address] Assigned PCP 12/18/21 03/25/22 Shanel Be APRN METAL PRODUCTS VIEWER [address] [address] [address] Assigned PCP 03/26/22 09/09/22 Caitlin Cifuentes PA-C [facility] [address] [place] [address] Assigned PCP 09/10/22 03/22/23 Shanel Be APRN METAL PRODUCTS VIEWER [address] [address] [address] Assigned PCP 03/23/23 07/20/23 [place] [address] [address] [address] Assigned PCP 07/21/23 documented as of this encounter
--- OUTSIDE RECORDS SUMMARY | 2024-08-30 14:10 | XMS_ITS | Encounter Summary ---
Author Organization [place] Address [facility] [place] [address] Care Team Providers Care Digital Court Reporter Name Role Phone Ruperto Alonzo MD Primary Care Provider [phone] Ruperto Alonzo MD Unavailable Reason for Visit * Reason Comments Medication Refill Encounter Details Date Type Department Care Team (Late st Contact Info) Description 07/29/2024 Refill [facility] [id number] [place] [phone] Shubham Schwarz PA-C [id number] [place] [address] [phone] Medication Refill Social History Tobacco Use Types [...] re latives? Once a week 07/14/2023 Attends [employer] Services Not on file 07/13 Active Member of Clubs or Organizations Not on f ile 07/14/2023 Attends Club or Organization Meetings Not on ever e 07/14/2023 Marital Status Not on file 07/14/2023 PHQ-2 Answer Date Recorded PHQ-2 Score 2 07/14/2023 [facility] [place] of Occupat ional Health - Occupational Stress Questionnaire Answer Date Recorded [...] in an abandoned building, in an overnight retirement, or couch-surfing.) Yes 07/14/2023 Are you worried [...] encounter Miscellaneous Notes * Telephone Encounter - Angi Arellano RN - 07/29/2024 4:07 PM CDT Spoke to pt's daughter and scheduled for visit 09/19- See other refill encounter from 07/29/24. Routed all refills to PCP for continuity purposes. Angi Duncan RN [facility] * Telephone Encounter - Whitney Morley RN - 07/29/2024 7:54 AM CDT Clinic RN: Please investigate patient's chart or contact patient if the information cannot be foundbecause patient should have run out of this medication on 12/22/2023. Confirm patient is taking this medication as prescribed. Document findings and route refill encounter to provider for approval ordenial. Whitney Morley RN, BSN [facility] [place] documented in this encounter Plan of Treatment Upcoming Encounters Date Type Department Care Team (Late st Contact Info) Description 09/19/2024 11:30 AM CDT [facility] [address] [phone] [place] [address] [place] [address] documented as of this encounter Visit Diagnoses Diagnosis Essential hypertension with goal blood pressure less than 140/90 documented in this encounter Additional Health Concerns Assessment Noted Time PHQ-9 Depression Total Score: 1 02/12/20 20 9:42 AM GEOMAGNETIST documented as of this encounter Care Teams Digital Court Reporter Relationship Specialty Start [place] [address] [place] [address] PCP - General Family Medicine 07/07/23 [place] [address] [place] [address] Assigned PCP 07/21/23 documented as of this encounter
--- OUTSIDE RECORDS SUMMARY | 2024-08-30 14:10 | XMS_ITS | Encounter Summary ---
Author Organization [place] Address [address] [place] [address]. [place] [address] Care Team Providers Care Valve Tester Name Role Phone Loraine Gee APRN, CNP Primary Care Provider + Loraine Gee APRN, CNP Unavailable [phone] Michelle Duffy RN Unavailable Unavailable Caitlin Cifuentes PA-C Unavailable Shanel Be APRN, CNP Unavailable Caitlin Cifuentes PA-C Unavailable Shanel Be APRN, CNP Unavailable [phone] Ruperto Alonzo MD Primary Care Provider [phone] Ruperto Alonzo MD Unavailable Reason for Visit * Reason Comments Medication Refill Encounter Details Date Type Department Care Team (Late st Contact Info) Description 07/06/2020 Refill [facility] [address] [facility], [address] [place] [address] Shanel Be APRN REHAB OFFICE COORDINATOR [address] [place] [address] Medication Refill Social History Tobacco [...] file Not on file Not on file COVID-19 Exposure Response Date Recorded In the last month, have you been in contact with someone who was confirmed or suspected to have Coronavirus / COVID-19? No / Unsure 06/18/2020 9:46 AM CDT documented as of this encounter Miscellaneous Notes * Telephone Encounter - Loraine Gee APRN CNP - 07/09/2020 3:00 PM CDT Please help with nurse only blood pressure recheck Loraine Gee APRN CNP on 07/09/2020 at 3:00 PM * Telephone Encounter - Alia Thakkar RN - 07/08/2020 1:38 PM CDT Routing refill request to provider for review/approval because: BP Alia Chung RN documented in this encounter Plan of Treatment Upcoming Encounters Date Type Department Care Team (Late st Contact Info) Description 09/19/2024 11:30 AM CDT Office Visit [facility] [address] [place] [address] [place] [address] [place] [address] documented as of this encounter Visit Diagnoses Diagnosis Essential hypertension with goal blood pressure less than 140/90 documented in this encounter Additional Health Concerns Assessment Noted Time PHQ-9 Depression Total Score: 1 02/12/20 20 9: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 documented as of this encounter Care Teams Valve Tester Relationship Specialty Start Date End Date Loraine Gee APRN CNP PCP - General Nurse Practitioner 02/12/20 03/29/23 [place] [address] [address] [address] [address] PCP - General Family Medicine 07/07/23 Loraine Gee APRN REHAB OFFICE COORDINATOR [address] [place] [id number] Assigned PCP 02/23/20 12/17/21 Michelle Duffy, SEBASTIAN Personal Advocate & Liaison (PAL) Family Medicine 03/04/20 01/21/21 Caitlin Cifuentes PA-C [facility] [address] [place] [address] Assigned PCP 12/18/21 03/25/22 Shanel Be APRN REHAB OFFICE COORDINATOR [address] [place] [address] Assigned PCP 03/26/22 09/09/22 Caitlin Cifuentes PA-C [facility] [address] [address] [place] [address] Assigned PCP 09/10/22 03/22/23 Shanel Be APRN REHAB OFFICE COORDINATOR [address] [place] [address] Assigned PCP 03/23/23 07/20/23 [place] [address] [place] [address] Assigned PCP 07/21/23 documented as of this encounter
--- OUTSIDE RECORDS SUMMARY | 2024-08-30 14:10 | XMS_ITS | Encounter Summary ---
Author Organization [place] Address [address] [place] [address]. [place] [address] Care Team Providers Care Hob Mill Operator Name Role Phone Ruperto Alonzo MD Unavailable + Ruperto Alonzo MD Primary Care Provider + 2 Shanel Be APRN CORRUGATOR HELPER Unavailable + Ruperto Alonzo MD Unavailable + Loraine Gee APRN CORRUGATOR HELPER Primary Care Provider + Loraine Gee APRN CORRUGATOR HELPER Unavailable [phone] Michelle Duffy RN Unavailable Unavailable Caitlin Cifuentes PA-C Unavailable Shanel Be APRN CORRUGATOR HELPER Unavailable + [phone] Caitlin Cifuentes PA-C Unavailable Shanel Be APRN CORRUGATOR HELPER Unavailable + Ruperto Alonzo MD Primary Care Provider + 2 Ruperto Alonzo MD Unavailable + Reason for Visit * Reason Comments Medication Refill Encounter Details Date Type Department Care Team (Late st Contact Info) Description 09/20/2019 Refill [facility] [address] [address] [place], [address] [place] [address] [place] [address] [place] [address] Medication Refill Social History Tobacco Use Types [...] encounter Miscellaneous Notes * Telephone Encounter - Lucia Hammond RN - 09/20/2019 1:52 PM CDT [place] [facility]ill Protocol. Lucia Hammond RN [facility] -- Triage Nurse documented in this encounter Plan of Treatment Upcoming Encounters Date Type Department Care Team (Late st Contact Info) Description 09/19/2024 11:30 AM CDT Office Visit [facility] [address] [address] [phone] [place] [address] [place] [address] documented as of this encounter Visit Diagnoses Diagnosis Osteoporosis prophylaxis documented in this encounter Additional Health Concerns Assessment Noted Time PHQ-9 Depression Total Score: 10 018 7:21 AM CDT documented as of this encounter Care Teams Hob Mill Operator Relationship Specialty Start [place] [address] [place] [id number] PCP - General Family Practice 12/06/18 02/11/20 Loraine Gee APRN CORRUGATOR HELPER [address] [place] [address] PCP - General Nurse Practitioner 02/12/20 03/29/23 [place] [address] [place] [address] PCP - General Family Medicine 07/07/23 [place] [address] [place] [address] Assigned PCP 08/12/18 11/30/19 Shanel Be APRN CORRUGATOR HELPER [address] [place] [address] Assigned PCP 12/01/19 01/11/20 [place] [address] [place] [address] Assigned PCP 01/12/20 02/22/20 Loraine Gee APRN CORRUGATOR HELPER [address] [phone] Assigned PCP 02/23/20 12/17/21 Michelle Duffy RN Personal Advocate & Liaison (PAL) Family Medicine 03/04/20 01/21/21 Caitlin Cifuentes PA-C [facility] [address] [place] [address] Assigned PCP 12/18/21 03/25/22 Shanel Be APRN CORRUGATOR HELPER [address] [place] [address] Assigned PCP 03/26/22 09/09/22 Caitlin Cifuentes PA-C [facility] [address] [address] [place] [address] Assigned PCP 09/10/22 03/22/23 Shanel Be APRN [facility] [address] [place] [address] Assigned PCP 03/23/23 07/20/23 [place] [address] [place] [address] Assigned PCP 07/21/23 documented as of this encounter
--- OUTSIDE RECORDS SUMMARY | 2024-08-30 14:10 | XMS_ITS | Encounter Summary ---
Author Organization [place] Address [address] [place] [address] Care Team Providers Care Cooker Operator Name Role Phone Ruperto Alonzo MD Primary Care Provider + Nu Reyes MD Primary Care Prov ider Nu Reyes MD Unavailable + Nu Reyes MD Unavailable + Ruperto Alonzo MD Unavailable + Ruperto Alonzo MD Primary Care Provider + Shanel Be APRN FENCE POST DRIVER Unavailable + Ruperto Alonzo MD Unavailable + Loraine Gee APRN FENCE POST DRIVER Primary Care Provider + Loraine Gee APRN FENCE POST DRIVER Unavailable + Michelle Duffy RN Unavailable Unavailable Caitlin Cifuentes PA-C Unavailable + Shanel Be APRN FENCE POST DRIVER Unavailable + Caitlin Cifuentes PA-C Unavailable + Shanel Be APRN FENCE POST DRIVER Unavailable + Ruperto Alonzo MD Primary Care Provider [phone] Ruperto Alonzo MD Unavailable Reason for Visit * Reason Comments Medication Refill lisinopril and aspir in 81 Encounter Details Date Type Department Care Team (Late st Contact Info) Description 08/28/[address], [address] [place] [address] [place] [address] [place] [address] Medication Refill (lisinopril and aspirin 81) Social History Tobacco Use Types Packs/Day Years Used Date Smoking Tobacco: Never Smokeless Tobacco: Never Alcohol Use Standard Drinks/Week Comments No 0 (1 standard drink = 0.6 oz pur e alcohol) Comments No Sex and Gender Information Value [...] Telephone Encounter - Nica Redd RN - 08/31/2016 3:02 PM CDT Prescription approved per [facility] [place] Refill Protocol. Nica Redd RN * Telephone Encounter - Radha Valenzuela - 08/31/2016 1:17 PM CDT Caregiver for pt called indicating pt is out of meds - request rx be sent bro[place] to pharmacy. Leobardo * Telephone Encounter - Jeane Galindo - 08/29/2016 9:50 AM CDT lisinopril (PRINIVIL/ZESTRIL) 10 MG tablet Last Written Prescription Date: 10/08/15 Last Fill Quantity: 90, # refills: 1 Last Office Visit with [facility] or [facility] prescribing provider: 08/27/2016 Potassium Date Value Ref Range Status 10/08/2015 4.2 3.4 - 5.3 mmol/L Final Creatinine Date Value Ref Range Status 10/08/2015 0.73 0.52 - 1.04 mg/dL Final BP Readings from Last 3 Encounters: 08/27/16 132/68 10/08/15 150/75 06/05/15 138/68 aspirin 81 MG tablet Last Written Prescription Date: 10/08/15 Last Fill Quantity: 300, # refills: 12 Last Office Visit with [facility], P or [facility] prescribing provider: 08/27/[address] August 29, 2016 9:51 AM documented in this encounter Plan of Treatment Upcoming Encounters Date Type Department Care Team (Late st Contact Info) Description 09/19/2024 11:30 AM CDT Office Visit [facility] [address] [place] [address] [place] [address] [place] [address] documented as of this encounter Visit Diagnoses Diagnosis Essential hypertension with goal blood pressure less than 140/90 documented in this encounter Care Teams Cooker Operator Relationship Specialty Start Date End Date Ruperto Alonzo MD PCP - General Family Practice 04/20/15 10/19/16 Nu Reyes MD PCP - General Family Practice 10/20/16 12/05/18 Nu Reyes MD [place] [address] [employer] [address] [place] [address] PCP - Assigned PCP 06/05/16 05/01/18 Ruperto Alonzo MD PCP - General Family Practice 12/06/18 02/11/20 Loraine Gee APRN FENCE POST DRIVER [address] [place] [address] PCP - General Nurse Practitioner 02/12/20 03/29/23 [place] [address] [place] [address] PCP - General Family Medicine 07/07/23 Nu Reyes MD [place] [address] [employer] [address] [place], [place] [address] Assigned PCP 06/05/16 08/11/18 [place] [address] [place] [address] Assigned PCP 08/12/18 11/30/19 Shanel Be APRN FENCE POST DRIVER [address] [place] [address] Assigned PCP 12/01/19 01/11/20 [place] [address] [place] [address] Assigned PCP 01/12/20 02/22/20 Loraine Gee APRN FENCE POST DRIVER [address] [place] [place] [phone] Assigned PCP 02/23/20 12/17/21 Michelle Duffy, RN Personal Advocate & Liaison (PAL) Family Medicine 03/04/20 01/21/21 Caitlin Cifuentes PA-C [facility] [address] [place] [address] Assigned PCP 12/18/21 03/25/22 Shanel Be APRN FENCE POST DRIVER [address] [place] [address] Assigned PCP 03/26/22 09/09/22 Caitlin Cifuentes PA-C [facility] [address] [place] [address] Assigned PCP 09/10/22 03/22/23 Shanel Be APRN FENCE POST DRIVER [address] [place] [address] Assigned PCP 03/23/23 07/20/23 [place] [address] [place] [address] Assigned PCP 07/21/23 documented as of this encounter
--- OUTSIDE RECORDS SUMMARY | 2024-08-30 14:10 | XMS_ITS | Encounter Summary ---
Author Organization [place] Address [facility] [place] [address] Care Team Providers Care Jump Iron Machine Presser Name Role Phone Lroaine Gee APRN MODEL SET ARTIST Primary Care Provider + Loraine Gee APRN, CNP Unavailable Michelle Duffy RN Unavailable Unavailable Caitlin Cifuentes PA-C Unavailable Shanel Be APRN, CNP Unavailable [phone] Caitlin Cifuentes PA-C Unavailable Shanel Be APRN, CNP Unavailable [phone] Ruperto Alonzo MD Primary Care Provider [phone] Ruperto Alonzo MD Unavailable Reason for Visit * Reason Comments Medication Refill Encounter Details Date Type Department Care Team (Late st Contact Info) Description 12/22/2020 Refill [facility] [id number] [place] [phone] Shubham Schwarz PA-C [address] [place] [address] Medication Refill Social History Tobacco Use [...] encounter Miscellaneous Notes * Telephone Encounter - Ayala Crowley - 12/23/2020 4:07 PM CDT LM for pt to return call Ayala Crowley/Carpet Finishing Supervisor * Telephone Encounter - Loraine Gee APRN CNP - 12/23/2020 10:58 AM CDT Needs visit. Thank you Loraine Gee APRN CNP on 12/23/2020 at 10:58 AM * Telephone Encounter - Rosy Reddy RN - 12/23/2020 8:07 AM CDT Routing refill request to provider for review/approval because: Drug not on the [facility] refill protocol Rosy Reddy RN documented in this encounter Plan of Treatment Upcoming Encounters Date Type Department Care Team (Late st Contact Info) Description 09/19/2024 11:30 AM CDT Office Visit [facility] [address] [place] [address] [place] [address] [place] [address] documented as of this encounter Visit Diagnoses Diagnosis Diabetic polyneuropathy associated with type 2 diabetes mellitus (H) documented in this encounter Additional Health Concerns Assessment Noted Time PHQ-9 Depression Total Score: 1 02/11/ 20 9:42 AM HUSKER OPERATOR documented as of this encounter Care Teams Jump Iron Machine Presser Relationship Specialty Start Date End Date Loraine Gee APRN MODEL SET ARTIST PCP - General Nurse Practitioner 02/12/20 03/29/23 [place] [address] [place] [address] PCP - General Family Medicine 07/07/23 Loraine Gee APRN MODEL SET ARTIST [address] [place] [address] Assigned PCP 02/23/20 12/17/21 Michelle Duffy RN Personal Advocate & Liaison (PAL) Family Medicine 03/04/20 01/21/21 Caitlin Cifuentes PA-C [facility] [address] [place] [address] Assigned PCP 12/18/21 03/25/22 Shanel Be APRN MODEL SET ARTIST [address] [place] [address] Assigned PCP 03/26/22 09/09/22 Caitlin Cifuentes PA-C [facility] [address] [place] [address] Assigned PCP 09/10/22 03/22/23 Shanel Be APRN MODEL SET ARTIST [address] [place] [address] Assigned PCP 03/23/23 07/20/23 [place] [address] [place] [address] Assigned PCP 07/21/23 documented as of this encounter
--- OUTSIDE RECORDS SUMMARY | 2024-08-30 14:10 | XMS_ITS | Encounter Summary ---
Author Organization [place] Address [address] [place] [address]. [place] [address] Care Team Providers Care Die Cutter Operator Name Role Phone Ruperto Alonzo MD Unavailable + Ruperto Alonzo MD Primary Care Provider + 2 Shanel Be APRN SOLID WASTE COLLECTION WORKER Unavailable + Ruperto Alonzo MD Unavailable + Loraine Gee APRN SOLID WASTE COLLECTION WORKER Primary Care Provider + Loraine Gee APRN SOLID WASTE COLLECTION WORKER Unavailable [phone] Michelle Duffy RN Unavailable Unavailable Caitlin Cifuentes PA-C Unavailable Shanel Be APRN SOLID WASTE COLLECTION WORKER Unavailable + [phone] Caitlin Cifuentes PA-C Unavailable Shanel Be APRN SOLID WASTE COLLECTION WORKER Unavailable + Ruperto Alonzo MD Primary Care Provider + 2 Ruperto Alonzo MD Unavailable + Reason for Visit * Reason Comments Medication Refill Encounter Details Date Type Department Care Team (Late st Contact Info) Description 10/24/2019 Refill [facility] [address] [facility], [address] [place] [address] Shanel Be APRN SOLID WASTE COLLECTION WORKER [address] [place] [address] Medication Refill Social History Tobacco Use Types [...] Telephone Encounter - Lucia Hammond RN - 10/25/2019 12:05 PM CDT Prescription approved per [facility] [place] Refill Protocol. Lucia Hammond RN [facility] -- Triage Nurse documented in this encounter Plan of Treatment Upcoming Encounters Date Type Department Care Team (Late st Contact Info) Description 09/19/2024 11:30 AM CDT Office Visit [facility] [address] [address] [address] [address] [place] [address] [place] [address] documented as of this encounter Visit Diagnoses Diagnosis Essential hypertension with goal blood pressure less than 140/90 documented in this encounter Additional Health Concerns Assessment Noted Time PHQ-9 Depression Total Score: 10 018 7:21 AM CDT documented as of this encounter Care Teams Die Cutter Operator Relationship Specialty Start [place] [address] [place] [address] PCP - General Family Practice 12/06/18 02/11/20 Loraine Gee APRN SOLID WASTE COLLECTION WORKER [address] [place] [address] PCP - General Nurse Practitioner 02/12/20 03/29/23 [place] [address] [address] [place] [address] PCP - General Family Medicine 07/07/23 [place] [address] [address] [place] [address] Assigned PCP 08/12/18 11/30/19 Shanel Be APRN SOLID WASTE COLLECTION WORKER [address] [address] [place] [address] Assigned PCP 12/01/19 01/11/20 [place] [address] [address] [place] [address] Assigned PCP 01/12/20 02/22/20 Loraine Gee APRN SOLID WASTE COLLECTION WORKER [address] [place] [address] Assigned PCP 02/23/20 12/17/21 Michelle Duffy, RN Personal Advocate & Liaison (PAL) Family Medicine 03/04/20 01/21/21 Caitlin Cifuentes PA-C [facility] [address] [place] [address] Assigned PCP 12/18/21 03/25/22 Shanel Be APRN SOLID WASTE COLLECTION WORKER [address] [place] [address] Assigned PCP 03/26/22 09/09/22 Caitlin Cifuentes PA-C [facility] [address] [place] [address] Assigned PCP 09/10/22 03/22/23 Shanel Be APRN [facility] [address] [place] [address] Assigned PCP 03/23/23 07/20/23 [place] [address] [place] [address] Assigned PCP 07/21/23 documented as of this encounter
--- OUTSIDE RECORDS SUMMARY | 2024-08-30 14:10 | XMS_ITS | Encounter Summary ---
Author Organization [facility] Address [address] [place] [address]. [place] [address] Care Team Providers Care Lead Software Engineer Name Role Phone Ruperto Alonzo MD Primary Care Provider [phone] Ruperto Alonzo MD Unavailable Loraine Gee APRN PRODUCT TESTER Primary Care Provider + Loraine Gee APRN PRODUCT TESTER Unavailable [phone] Michelle Duffy RN Unavailable Unavailable Caitlin Cifuentes PA-C Unavailable Shanel Be APRN PRODUCT TESTER Unavailable [phone] Caitlin Cifuentes-Kenyatta Unavailable Shanel Be APRN, CNP Unavailable [phone] Ruperto Alonzo MD Primary Care Provider + Ruperto Alonzo MD Unavailable Reason for Visit * Reason Comments Medication Refill Encounter Details Date Type Department Care Team (Late st Contact Info) Description 01/29/[address], [address] [place] [address] Shanel Be APRN PRODUCT TESTER [address] [place] [address] Medication Refill Social History Tobacco [...] have Coronavirus / COVID-19? No / Unsure 01/29/2020 9:51 AM ECHOCARDIOGRAPH TECHNICIAN documented as of this encounter Miscellaneous Notes * Telephone Encounter - Ale Cummings RN - 01/29/2020 11:26 AM ECHOCARDIOGRAPH TECHNICIAN Medication is being filled for 1 time refill only due to: Patient needs to be seen because it has been more than one year since last visit. Next 5 appointments (look out 90 days) Feb 12, 2020 9:00 AM (Arrive by 8:40 AM) Office Visit with Loraine Gee APRN [facility] ([facility]) [address] [place] [phone] CARDIOGRAPH TECHNICIAN * Telephone Encounter - Nova García - 01/29/2020 9:58 AM CST General Call: Who is calling: Patient's daughter Tiffany Reason for Call: Checking on status of refill request, pt is out of medication as of today 01/29/20 What are your questions or concerns: none Date of last appointment with provider: 01/07/2019 with Shanel Be, made appt for pt with Loraine Gee on 02/12/20 Okay to leave a detailed message:No at Home number on file [phone] (home) Nova García-Patient Rep CARDIOGRAPH TECHNICIAN documented in this encounter Plan of Treatment Upcoming Encounters Date Type Department Care Team (Late st Contact Info) Description 09/19/2024 11:30 AM CDT Office Visit [facility] [place] [address] [phone] [place] [address] [address] [place] [address] documented as of this encounter Visit Diagnoses Diagnosis Essential hypertension with goal blood pressure less than 140/90 documented in this encounter Additional Health Concerns Assessment Noted Time PHQ-9 Depression Total Score: 10 018 7:21 AM CDT documented as of this encounter Care Teams Lead Software Engineer Relationship Specialty Start Date End Date Ruperto Alonzo MD PCP - General Family Practice 12/06/18 02/11/20 Loraine Gee APRN PRODUCT TESTER [address] [address] PCP - General Nurse Practitioner 02/12/20 03/29/23 [place] [address] [address] [address] PCP - General Family Medicine 07/07/23 [place] [address] [address] [address] Assigned PCP 01/12/20 02/22/20 Loraine Gee APRN PRODUCT TESTER [address] [place] [address] [phone] Assigned PCP 02/23/20 12/17/21 Michelle Duffy, RN Personal Advocate & Liaison (PAL) Family Medicine 03/04/20 01/21/21 Caitlin Cifuentes PA-C [facility] [address] [place] [address] Assigned PCP 12/18/21 03/25/22 Shanel Be APRN PRODUCT TESTER [address] [address] [address] Assigned PCP 03/26/22 09/09/22 Caitlin Cifuentes PA-C [facility] [address] [place] [address] Assigned PCP 09/10/22 03/22/23 Shanel Be APRN PRODUCT TESTER [address] [place] [address] Assigned PCP 03/23/23 07/20/23 [place] [address] [address] [address] Assigned PCP 07/21/23 documented as of this encounter
--- OUTSIDE RECORDS SUMMARY | 2024-08-30 14:10 | XMS_ITS | Encounter Summary ---
Author Organization [facility] Address [facility] [place] [address] Care Team Providers Care Broaching Machine Set Up Operator Name Role Phone Loraine Gee APRN DIAPER FOLDER Primary Care Provider + Loraine Gee APRN, CNP Unavailable [phone] Michelle Duffy RN Unavailable Unavailable Caitlin Cifuentes PA-C Unavailable Shanel Be APRN, CNP Unavailable Caitlin Cifuentes PA-C Unavailable Shanel Be APRN, CNP Unavailable [phone] Ruperto Alonzo MD Primary Care Provider [phone] Ruperto Alonzo MD Unavailable Reason for Visit * Reason Comments Medication Refill Encounter Details Date Type Department Care Team (Late st Contact Info) Description 12/22/2020 Refill [facility] [address] [place] [address] [place] [address] [place] [address] Medication Refill Social History Tobacco [...] encounter Miscellaneous Notes * Telephone Encounter - Derek Gonzalez RN - 12/25/2020 8:38 AM CDT Please advise on refill request. Patient's PCP now listed as [facility] previously prescribed by Harish Castillo RN documented in this encounter Plan of Treatment Upcoming Encounters Date Type Department Care Team (Late st Contact Info) Description 09/19/2024 11:30 AM CDT Office Visit [facility] [address] [facility] [place] [phone] [place] [address] [place] [address] documented as of this encounter Visit Diagnoses Diagnosis Osteoporosis prophylaxis documented in this encounter Additional Health Concerns Assessment Noted Time PHQ-9 Depression Total Score: 1 02/12/20 20 9:42 AM 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 documented as of this encounter Care Teams Broaching Machine Set Up Operator Relationship Specialty Start Date End Date Loraine Gee APRN DIAPER FOLDER PCP - General Nurse Practitioner 02/12/20 03/29/23 [place] [address] [address] [place] [id number] PCP - General Family Medicine 07/07/23 Loraine Gee APRN DIAPER FOLDER [address] [place] [address] [phone] Assigned PCP 02/23/20 12/17/21 Michelle Duffy RN Personal Advocate & Liaison (PAL) Family Medicine 03/04/20 01/21/21 Caitlin Cifuentes PA-C [facility] [address] [place] [address] Assigned PCP 12/18/21 03/25/22 Shanel Be APRN DIAPER FOLDER [address] [address] [address] Assigned PCP 03/26/22 09/09/22 Caitlin Cifuentes PA-C [facility] [address] [place] [place] [address] Assigned PCP 09/10/22 03/22/23 Shanel Be APRN DIAPER FOLDER [address] [address] [address] [address] Assigned PCP 03/23/23 07/20/23 [place] [address] [address] [address] Assigned PCP 07/21/23 documented as of this encounter
--- OUTSIDE RECORDS SUMMARY | 2024-08-30 14:10 | XMS_ITS | Clinical Summary ---
Author Organization [facility] Address [address] [place] [address] Care Team Providers Care Highway Design Engineer Name Role Phone Pcp, No Primary Care Provider Unavailabl e Allergies Active Allergy Reactions Criticality Noted Date Comments Lisinopril Angioedema 06/18/2020 Medications calcium carb/vit D3/minerals (Calcium Carbonate-Vit D3-Min) 600 mg (1,500 mg)-200 unit chew TAKE 1 TABLET BY MOUTH TWICE A DAY 0 Active amLODIPine (NORVASC) 5 mg tablet TAKE 1 TABLET BY MOUTH EVERY DAY 1 Active aspirin chewable 81 mg chewable tablet Chew 81 mg by mouth. 0 Active brimonidine (ALPHAGAN P) 0.15 % ophthalmic solution INSTILL 1 DROP 2 TIMES EVERY DAY INTO RIGHT EYE 9 Active brimonidine (ALPHAGAN) 0.2 % ophthalmic solution INSTILL 1 DROP INTO RIGHT EYE TWICE A DAY 1 Active calcium carbonate-renee calciferol, 600mg-200 units, (CALTRATE-600 + VIT D) tablet TAKE 1 TABLET BY MOUTH TWICE A DAY 0 Active dorzolamide-daylin oloL (COSOPT) 2-0.5 % ophthalmic solution INSTILL 1 DROP TWICE A DAY INTO RIGHT EYE 0 Active DULoxetine (CYMBALTA) 20 mg Delayed-release capsule Take 20 mg by mouth once daily. 1 Active hydroCHLOROthia zide 12.5 mg tablet TAKE 1 TABLET (12.5 MG) BY MOUTH DAILY 1 Active latanoprost (XALATAN) 0.005 % ophthalmic solution INSTILL 1 DROP BY OPHTHALMIC ROUTE AT BEDTIME IN BOTH EYES 1 Active lovastatin (MEVACOR) 40 mg tablet Take 40 mg by mouth once daily. 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 Gender Identity Not on file Sexual Orientation Not on file Obstetrics History Last Filed Vital Signs Vital Sign Reading Time Taken Comments Blood Pressure 119/73 09/03/2020 6:03 PM CDT Pulse 87 09/03/2020 6:03 PM CDT Temperature 37.9 C (100.2 F) 09/03/2020 6:03 PM CDT Respiratory Rate 18 09/03/2020 6:03 PM CDT Oxygen Saturation 96% 09/03/2020 6:03 PM CDT Inhaled Oxygen Concentration - - Weight 72.6 kg (160 lb) 06/09/2020 7:12 PM CDT Height 165.1 cm (5' 5) 06/09/2020 7:12 PM CDT Body Mass Index 26.63 06/09/2020 7:12 PM CDT Plan of Treatment Not on file Insurance [facility] Care Teams Highway Design Engineer Relationship Specialty Start Date End Date Pcp, No . PCP - General 10/15/09
--- OUTSIDE RECORDS SUMMARY | 2024-08-30 14:10 | XMS_ITS | Encounter Summary ---
Author Organization [facility] Address [address] [place] [address]. [place] [address] Care Team Providers Care Egg Separator Name Role Phone Loraine Gee APRN, CNP Primary Care Provider + Loraine Gee APRN, CNP Unavailable Michelle Duffy RN Unavailable Unavailable Caitlin Cifuentes PA-C Unavailable Shanel Be APRN, CNP Unavailable [phone] Caitlin Ciufentes PA-C Unavailable Shanel Be APRN, CNP Unavailable [phone] Ruperto Alonzo MD Primary Care Provider [phone] Ruperto Alonzo MD Unavailable Reason for Visit * Reason Comments Medication Refill Encounter Details Date Type Department Care Team (Late st Contact Info) Description 07/20/[address] [address] Shanel Be APRN MULTI SENSOR OPERATOR [address] [place] [address] Medication Refill Social History Tobacco [...] have Coronavirus / COVID-19? No / Unsure 07/17/2020 11:30 AM CDT documented as of this encounter Plan of Treatment Upcoming Encounters Date Type Department Care Team (Late st Contact Info) Description 09/19/2024 11:30 AM CDT Office Visit [facility] [address] [place] [address] [place] [address] [place] [address] documented as of this encounter Visit Diagnoses Diagnosis Type 2 diabetes mellitus with diabetic polyneuropathy, 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) documented in this encounter Additional Health Concerns Assessment Noted Time PHQ-9 Depression Total Score: 1 02/12/20 20 9: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 documented as of this encounter Care Teams Egg Separator Relationship Specialty Start Date End Date Loraine Gee APRN MULTI SENSOR OPERATOR PCP - General Nurse Practitioner 02/12/20 03/29/23 [place] [address] [place] [address] PCP - General Family Medicine 07/07/23 Loraine Gee APRN MULTI SENSOR OPERATOR [address] [place] [phone] Assigned PCP 02/23/20 12/17/21 [place], Michelle A, RN Personal Advocate & Liaison (PAL) Family Medicine 03/04/20 01/21/21 Caitlin Cifuentes PA-C [place] [id number] [place] [address] Assigned PCP 12/18/21 03/25/22 Shanel Be APRN MULTI SENSOR OPERATOR [address] [address] [address] Assigned PCP 03/26/22 09/09/22 Caitlin Cifuentes PA-C [facility] [address] [place] [address] Assigned PCP 09/10/22 03/22/23 Shanel Be APRN MULTI SENSOR OPERATOR [address] [address] [address] Assigned PCP 03/23/23 07/20/23 [place] [address] [address] [address] Assigned PCP 07/21/23 documented as of this encounter
--- OUTSIDE RECORDS SUMMARY | 2024-08-30 14:10 | XMS_ITS | Clinical Summary ---
Author Organization [facility] Address [address] [place] [id number] Care Team Providers Care Marketing Content Coordinator Name Role Phone Ruperto Alonzo MD Primary Care Provider [phone] Ruperto Alonzo MD Unavailable Allergies No known active allergies Medications latanoprost (XALATAN) 0.005 % ophthalmic solutionIndicatio ns:Primary open angle glaucoma of both eyes, unspecified glaucoma stage INSTILL 1 DROP BY OPHTHALMIC ROUTE AT BEDTIME IN BOTH EYES 1 Bottle 6 8 Active dorzolamide-timol ol (COSOPT) 2-0.5 % ophthalmic solutionIndicatio ns:Primary open angle glaucoma of both eyes, unspecified glaucoma stage INSTILL 1 DROP TWICE A DAY INTO RIGHT EYE 10 mL 5 0 Active timolol maleate (TIMOPTIC) 0.5 % ophthalmic solutionIndicatio ns:Primary open angle glaucoma of both eyes, unspecified glaucoma stage INSTILL 1 DROP BY OPHTHALMIC ROUTE EVERY MORNING IN LEFT EYE 10 mL 1 0 Active calcium carbonate-vitamin D 600-200 MG-UNIT TABS Take 1 tablet by mouth daily 0 Active prednisoLONE acetate (PRED FORTE) 1 % ophthalmic suspension Place 1 drop into the right eye 3 times daily 1 Active brimonidine (ALPHAGAN) 0.2 % ophthalmic solution INSTILL 1 DROP INTO RIGHT EYE TWICE A DAY 1 Active Multiple Minerals-Vitamins ([employer] CALCIUM 600 PLUS) CHEW Take 1 tablet by mouth daily 0 Active Calcium Carb-Cholecalcife rol 600-5 MG-MCG TABSIndications:O steoporosis prophylaxis Take 1 tablet by mouth 2 times daily 180 tablet 1 3 Active aspirin 81 MG EC tablet Take 81 mg by mouth daily Active lisinopril-hydroc hlorothiazide (ZESTORETIC) 10-12.5 MG tabletIndications :Essential hypertension with goal blood pressure less than 140/90 Take 2 tablets by mouth daily 180 tablet 4 Active rOPINIRole (REQUIP) 0.25 MG tabletIndications :Restless legs syndrome (RLS) Take 1-2 tablets (0.25-0.5 mg) by mouth nightly as needed 90 tablet 4 Active triamcinolone (KENALOG) 0.1 % external creamIndications: Eczema, unspecified type Apply topically 3 times daily Can use for 2 weeks and then take a 2 week break. Repeat as needed. 80 g 2 4 Active hydrOXYzine HCl (ATARAX) 10 MG tabletIndications :Eczema, unspecified type Take 1 tablet (10 mg) by mouth nightly as needed for itching 90 tablet 1 4 Active amLODIPine (NORVASC) 10 MG tabletIndications :Essential hypertension with goal blood pressure less than 140/90 TAKE 1 TABLET (10 MG) BY MOUTH DAILY. 30 tablet 5 Active lovastatin (MEVACOR) 40 MG tabletIndications :Hyperlipidemia LDL goal <100 TAKE 1 TABLET BY MOUTH EVERY DAY 30 tablet 5 Active Active Problems Patient Care Coordination No te Formatting of this note migh t be different from the original. [email or web address] Problem Noted Date Diagnosed Date Type 2 diabetes mellitus wit h diabetic polyneuropathy, without long-term current use of insulin 08/23/2017 Essential hypertension with goal blood pressure less than 140/90 08/14/2015 Obesity 11/19/2014 Osteopenia 07/15/2014 Diabetic neuropathy 04/04/2014 Hyperlipidemia LDL goal <100 11/01/2013 Cataract 11/01/2013 Primary open angle glaucoma (POAG) of both eyes 11/01/2013 Pain in joint involving lower leg 11/01/2013 Resolved Problems Problem Noted Date Diagnosed Date Resolved Date Subdural hematoma 01/22/2021 09/28/2021 Muscle weakness (generalized) 08/06/2014 10/15/2014 Type II or unspecified type diabetes mellitus with peripheral circulatory disorders, not stated as uncontrolled(250.70) 08/06/2014 [facility] 04/15/2014 08/14/2023 Overview (04/25/2014): Status: [facility] [phone] No active care coordination Special Events Driver: Liat Bansal RN [phone] See Letters for [facility] Emergency Care Plan Date: April 25, 2014 HTN (hypertension) 11/01/2013 6 Type 2 diabetes, HbA1C goal < 8% 11/01/2013 08/07/2018 Encounters Date Type Department Care Team Description 07/29/2024 Refill M [facility] [id number] [place] [id number] Shubham Schwarz PA-C Medication Refill 07/29/2024 Refill M [facility] [address] [place] [address] Ruperto Alonzo MD Medication Refill from Last 3 Months Immunizations Immunization Administration Dates Next Due COVID-19 MONOVALENT 12+ (Pfizer) 09/16/2020,07/30 HepB 09/30/2009 Influenza (High Dose) Trival ent,PF (Fluzone) 11/28/2018,11/29/2017,12/01/2014 Influenza Vaccine 65+ (Fluzone HD) 02/10/2022, Pneumo Conj 13-V (2010&after) 10/08/2015 Pneumococcal 23 valent 12/01/2014 Poliovirus, inactivated (IPV) 10/08/2015 TD,PF 7+ (Tenivac) 02/27/2009 TDAP Vaccine (Adacel) 12/01/2014 Zoster vaccine, live 10/08/2015 Family History Medical History Relation Comments Hypertension Father Relation Status Comments Father Mother Social History Tobacco Use Types Packs/Day Years [...] re latives? Once a week 07/14/2023 Attends Mandae[employer] Services Not on file 07/13 Active Member of Clubs or Organizations Not on f ile 07/14/2023 Attends Club or Organization Meetings Not on ever e 07/14/2023 Marital Status Not on file 07/14/2023 PHQ-2 Answer Date Recorded PHQ-2 Score 2 07/14/2023 [facility] - Occupational Stress [...] Answer Date Recorded Do you have housing? (Brittney g is defined as stable permanent housing [...] file Not on file Not on file Last Filed Vital Signs Vital Sign Reading Time Taken Comments Blood Pressure 180/90 09/21/2023 11:57 AM CDT Pulse 66 09/21/2023 11:25 AM CDT Temperature 36.4 C (97.6 F) 09/21/2023 11:25 AM CDT Respiratory Rate 20 09/21/2023 11:25 AM CDT Oxygen Saturation 98% 09/21/2023 11:25 AM CDT Inhaled Oxygen Concentration - - Weight 65.8 kg (145 lb) 09/21/2023 11:25 AM CDT Height 165.1 cm (5' 5) 09/21/2023 11:25 AM CDT Body Mass Index 24.13 09/21/2023 11:25 AM CDT Plan of Treatment Upcoming Encounters Date Type Department Care Team (Late st Contact Info) Description 09/19/2024 11:30 AM CDT Office Visit [facility] [address] [place] [address] [place] [address] [place] [address] Health Maintenance Due Date Last Done Comments RSV VACCINE (1 - 1-dose 75+ series) 10/04/2014 ZOSTER VACCINE (2 of 3) 12/03/2015 10/08/2015 DIABETIC FOOT EXAM 03/08/2022 03/08/2021, 0 03/08/2021, 02/12/2020, Additional history exists MEDICARE ANNUAL WELLNESS VISIT 09/28/2022 09/28/2021, 03/12/2020, 03/12/2020, Additional history exists COVID-19 VACCINE ( season) 2023 09/16/2020, 08/26/2020 A1C 01/14/2024 07/14/2023, 01/27, 09/28/2021, Additional history exists PHQ-2 (once per calendar year) 2024 07/14/2023, 02/10/2022, 09/28/2021, Additional history exists EYE EXAM 07/04/2024 07/05/2023, 02/2020, 02/05/2020, Additional history exists ANNUAL REVIEW OF HM ORDERS 07/13/2024 07/14/2023, BMP 07/13/2024 07/14/2023, 03/2021, 03/08/2021, Additional history exists FALL RISK ASSESSMENT 07/13/2024 07/14/2023, 09/28/2021, 01/25/2021, Additional history exists LIPID 07/13/2024 07/14/2023, 01/27, 03/08/2021, Additional history exists MICROALBUMIN 07/13/2024 07/14/2023, 01/27, 03/08/2021, Additional history exists INFLUENZA VACCINE (#1) 2024 , 03/08/2021, 11/28/2018, Additional history exists DTAP/TDAP/TD VACCINE (2 - Td or Tdap) 12/01/2024 12/01/2014, 02/27/2009 ADVANCE CARE PLANNING 09/28/2026 09/28/2021 , 07/17/2020, 03/12/2020 DEXA 05/08/2029 05/08/2014 PNEUMOCOCCAL VACCINE 50+ YEARS Completed 10/08/2015, 12/01/2014 HPV VACCINE Aged Out No longer eligi ble based on patient's age to complete this topic MENINGITIS VACCINE Aged Out No longer eligible based on patient's age to complete this topic Procedures Procedure Name Priority Date/Time Associated Diagnosis Comments ALBUMIN RANDOM URINE QUANTITATIVE Routine 07/14/2023 1:51 PM CDT Type 2 diabetes mellitus with diabetic polyneuropathy, 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) LIPID REFLEX TO DIRECT LDL PANEL Routine 07/14/2023 1:34 PM CDT Hyperlipidemia LDL goal <100 BASIC METABOLIC PANEL Routine 07/14/2023 1:34 PM CDT Essential hypertension with goal blood pressure less than 140/90 HEMOGLOBIN A1C Routine 07/14/2023 1:34 PM CDT Type 2 diabetes mellitus with diabetic polyneuropathy, 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) EYE EXAM - HIM SCAN Routine 07/05/2023 C FOOT EXAM Routine 12/01/2014 11:41 AM CDT Screening for diabetic peripheral neuropathy DX BONE DENSITY Routine 05/08/2014 11:15 AM CDT Asymptomatic Postmenopausal Status (Age-Related) (Natural) from Last 3 Months or Most Recently Relevant to Health Maintenance Results * Albumin Random Urine Quantitative with Creat Ratio (07/14/2023 1:51 PM CDT) Creatinine Urine mg/dL 19.8 mg/dL 07/15/2023 10:12 PM CDT [facility] Comment:The reference ranges have not been established in urine creatinine. The results should be integrated into the clinical context for interpretation. Albumin Urine mg/L <12.0 mg/L 2023 10:12 PM CDT [facility] Comment:The reference ranges have not been established in urine albumin. The results should be integrated into the clinical context for interpretation. Albumin Urine mg/g Cr 07/15/2023 10:12 PM CDT [facility] Comment: Unable to calculate, urine albumin and/or urine creatinine is outside detectable limits. Microalbuminuria is defined as an albumin:creatinine ratio of 17 to 299 for males and 25 to 299 for females. A ratio of albumin:creatinine of 300 or higher is indicative of overt proteinuria. Due to biologic variability, positive results should be confirmed by a second, first-morning random or 24-hour timed urine specimen. If there is discrepancy, a third specimen is recommended. When 2 out of 3 results are in the microalbuminuria range, this is evidence for incipient nephropathy and warrants increased efforts at glucose control, blood pressure control, and institution of therapy with an bfopgscxhpx-ewgompguha-wdudsn (LORI) inhibitor (if the patient can tolerate it). Urine URINE SPECIMEN / Unknown Non-blood Collection / Unknown 07/14/2023 1:51 PM CDT 07/14/2023 1:51 PM CDT us Ruperto Alonzo MD LAB - URINE ORDERABLES Final Res ult [facility] [address] [facility], [address] [place] [id number] * (ABNORMAL) Lipid panel reflex to direct LDL Non-fasting (07/14/2023 1:34 PM CDT) Cholesterol 175 <200 mg/dL 07/15/2023 9:59 PM CDT [facility] Triglycerides 69 <150 mg/dL 07/15/2023 9:59 PM CDT [facility] Direct Measure HDL 48(L) >=50 mg/dL 07/15/2023 9:59 PM CDT [facility] LDL Cholesterol Calculated 113(H) <=100 mg/dL 07/15/2023 9:59 PM CDT [facility] Non HDL Cholesterol 127 <130 mg/dL 07/15/2023 9:59 PM CDT [facility] Patient Fasting > 8hrs? No 07/15/2023 9:59 PM CDT [facility] Blood BLOOD SPECIMEN / Unknown Venipuncture / Unknown 07/14/2023 1:34 PM CDT 07/14/2023 1:35 PM CDT Narrative [facility] - 07/15/2023 9:59 PM CDT Cholesterol Desirable: <200 mg/dL Triglycerides Normal: Less than 150 mg/dL Borderline High: 150-199 mg/dL High: 200-499 mg/dL Very High: Greater than or equal to 500 mg/dL Direct Measure HDL Female: Greater than or equal to 50 mg/dL Male: Greater than or equal to 40 mg/dL LDL Cholesterol Desirable: <100mg/dL Above Desirable: 100-129 mg/dL Borderline High: 130-159 mg/dL High: 160-189 mg/dL Very High: >= 190 mg/dL Non HDL Cholesterol Desirable: 130 mg/dL Above Desirable: 130-159 mg/dL Borderline High: 160-189 mg/dL High: 190-219 mg/dL Very High: Greater than or equal to 220 mg/dL us Ruperto Alonzo MD LAB - BLOOD ORDERABLES Final Res ult [facility] [address] [facility] [address] [facility], [address] [place] [address] * HEMOGLOBIN A1C (07/14/2023 1:34 PM CDT) Hemoglobin A1C 5.1 0.0 - 5.6 % 07/14/2023 1:39 PM CDT [facility] Comment: Normal <5.7% Prediabetes 5.7-6.4% Diabetes 6.5% or higher Note: Adopted from ADA consensus guidelines. Blood BLOOD SPECIMEN / Unknown Venipuncture / Unknown 07/14/2023 1:34 PM CDT 07/14/2023 1:35 PM CDT Ruperto Alonzo MD LAB - BLOOD ORDERABLES Final Res ult LABORATORY [facility] [address] [facility] (no room number, 1st floor of clinic) [place] [address], [facility] * BASIC METABOLIC PANEL (07/14/2023 1:34 PM CDT) Sodium 137 135 - 145 mmol/L 07/15/2023 9:59 PM CDT [facility] Comment:Reference intervals for this test were updated on 11/22/2022 to more accurately reflect our healthy population. There may be differences in the flagging of prior results with similar values performed with this method. Interpretation of those prior results can be made in the context of the updated reference intervals. Potassium 4.2 3.4 - 5.3 mmol/L 07/15/2023 9:59 PM CDT [facility] Chloride 100 98 - 107 mmol/L 07/15/2023 9:59 PM CDT [facility] Carbon Dioxide (CO2) 26 22 - 29 mmol/L 07/15/2023 9:59 PM CDT [facility] Anion Gap 11 7 - 15 mmol/L 07/15/2023 9:59 PM CDT [facility] Urea Nitrogen 18.4 8.0 - 23.0 mg/dL 07/15/2023 9:59 PM CDT [facility] Creatinine 0.83 0.51 - 0.95 mg/dL 07/15/2023 9:59 PM CDT [facility] GFR Estimate 70 >60 mL/min/1. 73m2 07/15/2023 9:59 PM CDT [facility] Calcium 9.4 8.8 - 10.2 mg/dL 07/15/2023 9:59 PM CDT [facility] Glucose 85 70 - 99 mg/dL 07/15/2023 9:59 PM CDT [facility] Patient Fasting > 8hrs? No 07/15/2023 9:59 PM CDT [facility] Blood BLOOD SPECIMEN / Unknown Venipuncture / Unknown 07/14/2023 1:34 PM CDT 07/14/2023 1:35 PM CDT us Ruperto Alonzo MD LAB - BLOOD ORDERABLES Final Res ult [facility] [address] [facility], [address] [id number] * Eye Exam - HIM Scan (07/05/2023) RETINOPATHY UNKNOWN Narrative Ale Smith - 07/05/2023 See encounter dated 07/14/23 Patient Reported OTHER Final Result * DX Hip/Pelvis/Spine (05/08/2014 11:15 AM CDT) Anatomical Region Laterality Modality Dexa Computed Radiogr aphy Impressions 05/11/2014 3:52 PM CDT Osteopenia (low bone mass) Degenerative changes of the spine Recommendations include ensuring adequate daily Calcium and Vitamin D intake Follow up scan can be considered in three years. Current NOF guidelines recommend treatment for patients with the following: - Prior hip or vertebral fracture - T-score -2.5 or below - A 10 year risk of any major osteoporotic fracture >20% or 10 year risk of hip fracture >3%, as calculated using the FRAX calculator (www.shef.ac.uk/FRAX). This patient's risks with the use of FRAX (based on available information) are 6.5 % for major osteoporotic fracture and 1.8 % for hip fracture. Based on these guidelines, treatment (in addition to calcium and vitamin D) is not recommended for this patient. While this is meant as an aid to clinical decision-making, clinical judgment must still be used. MOO SIMMONS M.D. Narrative 05/11/2014 3:52 PM CDT BONE [place] [address] 05/08/2014 PATIENT: Della Matt CHART: [id number] : 1940 AGE: [age] year old SEX: female REFERRING PROVIDER: Elva Stuart M.D. PROCEDURE: Bone density scanning was performed using DXA technology of the lumbar spine and hip. Scanning was performed on a Net[employer]ia scanner. Reporting is completed in the form of a T-score. The T-score represents the standard deviation from peak bone mass based on a young healthy adult. REFERENCE T-SCORES: Normal -1.0 and greater Osteopenia Between -1.0 and -2.5 Osteoporosis -2.5 and less RISK FACTORS: Post-menopausal CURRENT TREATMENT: Vitamin D FINDINGS: Lumbar Spine (L2-L4) T-score: -0.5 Left Femoral Neck T-score: -2.3 Right Femoral Neck T-score: -2.1 Lumbar (L1-L4) BMD: 1.189 Total Hip Mean BMD: 0.866 LATERAL VERTEBRAL ASSESSMENT Procedure: Vertebral fracture assessment was performed in the lateral decubitus position using a [employer] densitometer. Indications for VFA: T-score of -1.0 or worse and age (female>69) Confounding factors for VFA: Arthritis/degenerative disc disease, rib shadows and scapular shadows. The LVA scan is interpretable from T7 to L4. VFA Findings: Using the semi-quantitative analysis of Claus there was evidence of no spinal deformity VFA Impression: Della Matt has no vertebral fractures identified on the VFA. Ruperto Alonzo MD IMG DEXA ORDERABLES Final Result from Last 3 Months or Most Recently Relevant to Health Maintenance Insurance [facility] Advance Directives For more information, please contact: [phone] * Full Code (Latest Code Status on File) Date Activated Date Inactivated Comments 01/23/2021 10:25 AM 01/24/2021 1:41 PM All basic and advanced life-sustaining interventions are performed as appropriate Question Answer Comments Code status determined by: Discussion with roberte nt/ legal decision maker Care Teams Marketing Content Coordinator Relationship Specialty [place] [id number] [address] [id number] PCP - General Family Medicine 07/07/23 [place] [id number] [address] [id number] Assigned PCP 07/21/23
--- NOTE | 2024-08-30 14:35 | CRLHL7_ITS ---
For Patients: As a result of the Cures Act, medical imaging exams and procedure reports are released immediately into your electronic medical record. You may view this report before your referring provider. If you have questions, please contact your health care provider. INDICATION: Fall. Knee pain. TECHNIQUE: Two views left knee. IMPRESSION: Osteopenia. Tricompartmental osteoarthritis. Large effusion. No definite fracture. Dictated by Ruperto Verma MD @ 08/30/2024 3:31:54 PM (Electronically Signed)
[2024-08-30 15:50] LABS: Appearance Urine Cloudy (Clear)
[2024-08-30] MEDS: PROPOFOL 10 MG/ML INJ 200 MG IVP (17:32)
--- NOTE | 2024-08-30 17:32 | CRLHL7_ITS ---
For Patients: As a result of the Century Cures Act, medical imaging exams and procedure reports are released immediately into your electronic medical record. You may view this report before your referring provider. If you have questions, please contact your health care provider. INDICATION: Left knee pain and effusion. COMPARISON: Portable are 2024 plain film. TECHNIQUE: Noncontrast images left knee. Axial, coronal and sagittal reformats. FINDINGS: Large intermediate attenuation joint effusion distends suprapatellar recess. Suggestion of small layering hematocrit level but no intra-articular fat. Diffuse osteopenia. No acute fracture. Tricompartmental osteoarthritis with prominent marginal osteophytes and some central osteophytes in the medial condyle. Degenerative arthrosis proximal tibiofibular joint. Moderate-sized popliteal Reaves`s cyst has a 13 mm ossified filling defect within it. 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 IMPRESSION : 1. Large effusion higher in attenuation than typical for simple fluid may be subacute to chronic hemarthrosis. No definite fracture although osteopenia somewhat limiting. Query if the patient is on anticoagulation or had soft tissue injury. 2. 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 Please note that all CT scans at this facility use dose modulation, iterative reconstruction, and/or weight-based dosing when appropriate to reduce radiation dose to as low as reasonably achievable. Dictated by Ruperto Verma MD @ 09/02/2024 8:32:33 AM (Electronically Signed)
--- NOTE | 2024-08-30 17:36 | CRLHL7_ITS ---
For Patients: As a result of the Century Cures Act, medical imaging exams and procedure reports are released immediately into your electronic medical record. You may view this report before your referring provider. If you have questions, please contact your health care provider. INDICATION: LT WRIST POST SPLINTING. (Sic) COMPARISON: None available. TECHNIQUE: Three views left wrist. FINDINGS: As discussed below: IMPRESSION: 1. Interval casting. 2. Slight dorsal angulation of the articular distal radial fracture fragment on the lateral view compared to the prior examination. 3. Otherwise, comminuted fractures of the distal radius and ulna are redemonstrated without definite intra-articular extension. Associated soft tissue swelling is obscured by the overlying cast. Dictated by Arsen Lawrence MD @ 08/30/2024 6:41:11 PM (Electronically Signed)
== END 2024-08-30 19:22 | disposition home or self-care (01) ==
PROVIDERS: Emergency Provider Emergency Medicine
DX: S52.502A Unspecified fracture of the lower end of left radius, initial encounter for closed fracture (principal); S52.602A Unspecified fracture of lower end of left ulna, initial encounter for closed fracture; S01.112A Laceration without foreign body of left eyelid and periocular area, initial encounter; M25.062 Hemarthrosis, left knee; N39.0 Urinary tract infection, site not specified; W10.9XXA Fall (on) (from) unspecified stairs and steps, initial encounter
CPT/HCPCS: 25560; 12051; 36415; 70450; 71260; 72125; 73090; 73100; 73110; 73562; 73700; 80048; 81001; 85025; 87086; 99155; 99156; 99157; 99284; 99285; J2270; J2704; J7030; Q9967

== ENCOUNTER 2024-09-06 07:45 | Day surgery (SDC) | payer MEDICAID, SELFPAY ==
[2024-09-06 08:13] VITALS: BMI 23.3
[2024-09-06 08:17] VITALS: BP 203/66; PULSE 67; RESP 20; TEMP 37.4; O2SAT 96
--- NOTE | 2024-09-06 08:21 | W.PM.H&PU ---
History & Physical Update History & Physical Update H&P Reviewed and patient assessed: No changes noted
--- NOTE | 2024-09-06 08:22 | PM.ORPRC ---
Procedure Note Date of procedure: 09/06/24 Procedure: PREOPERATIVE DIAGNOSES: 1. Left distal radius fracture (intra-articular with comminution and dorsal angulation/displacement) 2. Left distal ulna fracture (comminuted, displaced) POSTOPERATIVE DIAGNOSES: 1. Left distal radius fracture (intra-articular with comminution and dorsal angulation/displacement) 2. Left distal ulna fracture (comminuted, displaced) PROCEDURES: 1. Left distal radius open reduction with internal fixation (3+ part intra-articular fracture) 2. Left distal ulna closed reduction 3. 46203 - intraoperative fluoroscopy up to 1 hour SURGEON: Luiz Ash MD HORTICULTURAL NURSERY ASSISTANT: Loraine Raza P.A.-C. - An operations administrative assistant was critical for this case to aid in patient positioning, limb manipulation, tissue retraction, closure, and splinting. ANESTHESIA: Axillary nerve block with monitored anesthesia care IMPLANTS: Mihaela [employer] DVR Crosslock distal radius locking plate with 2.7 mm fully-threaded locking pegs, 2.2 mm smooth locking pegs, and 2.7 mm nonlocking screws. TOURNIQUET: 69 minutes at 250 mmHg. INDICATIONS: The patient is a pleasant, 83-year-old who sustained a left wrist injury after a fall. They had difficulty with use of the extremity and deformity. Workup included xrays which revealed a displaced, unstable distal radius fracture. Given these findings, surgery was recommended to stabilize the fracture. Prior to surgery the risks and benefits of the procedure were discussed with patient all questions were answered and informed consent was obtained. FINDINGS: Closed, comminuted, displaced, intra-articular distal radius fracture. Closed, displaced comminuted distal ulna fracture. After fixation of the distal radius, the distal radius was in near anatomic position, and the distal ulna fracture was in acceptable alignment. PROCEDURE: Patient was seen preoperatively and operative site was marked. An axillary nerve block was performed by anesthesia staff. The patient was then brought to the operating room and placed supine on the operating table. Monitored anesthesia care was provided, and patient was given IV Ancef preoperatively for prophylaxis. The operative extremity was prepped and draped in usual sterile fashion. A surgical time-out was performed confirming patient identity, surgical site, and surgical procedure. The operative extremity was exsanguinated and the tourniquet inflated to 250 mmHg. A longitudinal incision was made overlying the FCR tendon on the volar aspect of the distal forearm. Sharp incision through skin and subcutaneous tissue allowed identification of the FCR tendon. The superficial sheath was sharply divided, the FCR tendon was retracted ulnarly, and the deep fascial sheath also released. The FPL was retracted ulnarly and the pronator quadratus was sharply released from the distal and radial border of the radius and subperiosteally elevated. The brachioradialis was released from its insertion on the distal radius. The fracture was encountered and cleared of interposed periosteum and fracture hematoma. A reduction was performed and the appropriate plate selected. Temporary stabilization allowed C-arm fluoroscopy to confirm proper fracture reduction and plate positioning. The oblong hole was filled with a nonlocking screw. Plate was then fixed distally with a K-wire. Distal holes were filled with a combination of 2.7 mm fully-threaded locking pegs and 2.2 mm smooth locking pegs. Fluoroscopic imaging confirmed correct peg length. Pegs were confirmed to be extra-articular in the subchondral bone. Finally, the remaining proximal shaft screws were drilled and placed. Fluoroscopic imaging confirmed satisfactory reduction of the distal radius, correct position of the plate and screws. The distal ulna fracture was also reduced and in satisfactory alignment. Due to the significant comminution of this distal ulna fracture and alignment being in acceptable position, decision was made to treat this fracture with immobilization in a well-molded splint. At this stage, the wound was thoroughly irrigated with normal saline. Pronator quadratus was closed with 2-0 Vicryl [id number] interrupted sutures. The tourniquet was released. Total tourniquet time was 69 minutes. Hemostasis was achieved with compression and electrocautery. Wound was again irrigated with normal saline. Skin closure was performed with 3-0 Vicryl subcutaneous stitches followed by running 3-0 Monocryl subcuticular stitches and Dermabond Sterile dressings were applied followed by the application of a dorsal volar short-arm splint. The patient was awoken from anesthesia and transferred to PACU in stable condition. PLAN: 1. Elevate operative extremity. 2. Ice, acetaminophen or ibuprofen PRN. 3. Oxycodone as needed for more severe pain 4. Follow up in Orthopedic Clinic in 10-14 days for wound check and splint removal. -will convert to short-arm cast for immobilization of the distal ulna fracture until 6 weeks postoperatively.
[2024-09-06] MEDS: LACTATED RINGERS 1000 ML 1,000 ML 100 ML IV (08:40)
[2024-09-06] MEDS: SODIUM CHLORIDE 0.9 % (FLUSH) 10 ML SYRINGE IVF (08:42)
[2024-09-06 08:45] VITALS: BP 212/77; PULSE 75; RESP 20; O2SAT 100
[2024-09-06] MEDS: MIDAZOLAM HCL 1 MG/ML inj IVP (08:45)
--- NOTE | 2024-09-06 08:45 | CRLHL7_ITS ---
For Patients: As a result of the Cures Act, medical imaging exams and procedure reports are released immediately into your electronic medical record. You may view this report before your referring provider. If you have questions, please contact your health care provider. Indication: ORIF left wrist Technique: Two fluoroscopic images of the left wrist. Fluoroscopic time 32.5 seconds. IMPRESSION: Fluoroscopic guidance for open reduction internal fixation of distal radial metaphyseal fracture. Dictated by Torito Ayala MD @ 09/06/2024 1:08:08 PM (Electronically Signed)
--- NOTE | 2024-09-06 08:49 | SUR.PREOP ---
TIME?OUT:?left arm, 0843 PT/RN/MDA?VERIFICATION?OF?SURGICAL?SITE,?PROCEDURE,?AND?CONSENT OBTAINED?PRIOR?TO?INVASIVE?PROCEDURE.
--- NOTE | 2024-09-06 08:58 | W.PM.NB ---
Nerve Block Nerve Block Time Seen by Provider: 08:48 Date Seen: 09/06/24 Type of block requested by surgeon for post-operative analgesia: axillary Side: left Time out performed: Yes Verification of patient name: Yes Verification of date of : Yes Site marking: site marked Name of person performing procedure: [place] Continuous monitoring Was continuous monitoring of O2 sat, B/P, cardiac rehabilitation specialist, recorded every 15 minutes?: Yes Procedure Checklist: sterile prep, needles and gloves Ultrasound guided. Images saved: Yes Medications given in 5ml increments after negative aspiration: Ropivicaine %: 0.5 mL: 30 Needle gauge: 22 Patient tolerated procedure well: Yes Additional comments: Needle noted adjacent to nerve Block Charges Block Charge (with Pro Fee): Brachial Plexus Use of Ultrasound Machine for Block: Yes- US Guidance/pain block
[2024-09-06 10:46] VITALS: BP 180/100; PULSE 65; RESP 16; TEMP 36.1; O2SAT 96
--- NOTE | 2024-09-06 10:50 | P.ANES_ITS ---
Anesthesia Charges Start Date/Time Anesthesia Start Date: 09/06/24 Anesthesia Start Time: 08:51 Stop Date/Time Anesthesia Stop Date: 09/06/24 Anesthesia Stop Time: 10:50 Coding CPT Codes CPT Codes: ANESTH LOWER ARM SURGERY - 36629 ([id number]) P2 - PATIENT W/MILD SYST DISEASE, QZ - HOME THERAPY CLINICIAN SVC W/O CLINIC SUPERVISOR BY
--- NOTE | 2024-09-06 10:50 | W.ANESCHARGE ---
Anesthesia Charges Start Date/Time Anesthesia Start Date: 09/06/24 Anesthesia Start Time: 08:51 Stop Date/Time Anesthesia Stop Date: 09/06/24 Anesthesia Stop Time: 10:50 Coding CPT Codes CPT Codes: ANESTH LOWER ARM SURGERY - 56271 ([id number]) P2 - PATIENT W/MILD SYST DISEASE, QZ - CHECK EXAMINER SVC W/O HUMAN FACTORS ADVISOR LEAD BY
[2024-09-06 11:00] VITALS: BP 192/75; PULSE 70; RESP 20; O2SAT 94
[2024-09-06 11:15] VITALS: BP 188/67; PULSE 70; RESP 20; TEMP 36.4; O2SAT 95
[2024-09-06 11:30] VITALS: BP 187/70; PULSE 72; RESP 20; O2SAT 95
== END 2024-09-06 11:43 | disposition home or self-care (01) ==
PROVIDERS: Visit Provider Orthopaedic Surgery
PROC: (CPT 25575; principal; 2024-09-06 08:45)
DX: S52.572A Other intraarticular fracture of lower end of left radius, initial encounter for closed fracture (principal); S52.692A Other fracture of lower end of left ulna, initial encounter for closed fracture; G89.18 Other acute postprocedural pain
CPT/HCPCS: 25609; 25650; 01830; 64415; 73100; 76000; 76942; C1713; J0690; J2250; J2405; J2704; J2795; J3010; J7120